=== PATIENT | male | born 1955 | race Caucasian/White ===

== ENCOUNTER 2017-01-03 08:46 | Outpatient (CLI) ==
[2016-07-11 17:47] VITALS: BMI 23.5
[2017-01-03 09:12] LABS: BASOPHILS # (AUTO) 0.1 K/uL (0-0.2); BASOPHILS % (AUTO) 1.4 % (0.0-3.0); EOSINOPHILS # (AUTO) 0.3 K/ul (0.0-0.7); HEMATOCRIT 36.5 % (42.0-52.0); HEMOGLOBIN 12.5 g/dl (14.0-18.0); IMMATURE GRANULOCYTE % (AUTO) 0.5 % (0.0-5.0); LYMPHOCYTES # (AUTO) 1.7 K/uL (0.60-3.4); MEAN CORPUSCULAR HEMOGLOBIN 36.3 pg (27.0-31.0); MEAN CORPUSCULAR HGB CONC 34.2 (31.8-35.4); MEAN CORPUSCULAR VOLUME 106.1 fl (80.0-94.0); MONOCYTES # (AUTO) 0.4 K/uL (0.4-2.0); MONOCYTES % (AUTO) 9.1 (0-10); NEUTROPHILS # (AUTO) 1.8 K/ul (2.0-6.9); PLATELET COUNT 198 10^3/uL (140-440); RED BLOOD COUNT 3.44 10^6/ul (4.70-6.10); WHITE BLOOD COUNT 4.18 K/ul (4.2-10.2)
[2017-01-03 09:47] LABS: ALBUMIN 3.7 g/dL (3.4-5.0); ALBUMIN/GLOBULIN RATIO 1.16; ANION GAP 13.8; BILIRUBIN,TOTAL 0.22 mg/dL (0.00-1.20); BUN/CREATININE RATIO 14.65; CALCIUM 9.4 mg/dL (8.2-10.2); CHOL/HDL RATIO 3.8 (4.5-6.4); CREATININE 1.16 mg/dL (0.60-1.10); POTASSIUM 3.8 mmol/L (3.5-5.1); TOTAL PROTEIN 6.9 g/dL (6.4-8.2)
== END 2017-01-03 08:47 | disposition home or self-care (01) ==
LOC: LAB 08:46
PROVIDERS: ATTEND Emergency Medicine
DX: I10 Essential (primary) hypertension (principal); R91.1 Solitary pulmonary nodule; D64.9 Anemia, unspecified; I63.432 Cerebral infarction due to embolism of left posterior cerebral artery
CPT/HCPCS: 36415; 80053; 80061; 84443; 85025

== ENCOUNTER 2017-01-04 12:42 | Outpatient (CLI) ==
[2016-07-11 17:47] VITALS: BMI 23.5
== END 2017-01-04 12:43 | disposition home or self-care (01) ==
LOC: CAR 12:42
PROVIDERS: ATTEND Emergency Medicine
DX: R06.02 Shortness of breath (principal); F17.200 Nicotine dependence, unspecified, uncomplicated

== ENCOUNTER 2017-01-05 12:35 | Outpatient (CLI) ==
[2016-07-11 17:47] VITALS: BMI 23.5
--- NOTE | 2017-01-05 13:25 | CT ---
EXAM: CT chest without contrast HISTORY: Solitary pulmonary nodule COMPARISON: CT chest 06/10/2015 TECHNIQUE: Serial axial images of the chest were obtained from the lung apices to the upper abdomen without contrast. These were viewed in multiple planes. FINDINGS: The thyroid is normal. The visualized vessels demonstrate mild atherosclerotic disease w ithout aneurysm or stenosis. The heart is normal in size without pericardial effusion. There are n o pathologically enlarged mediastinal or hilar lymph nodes. Calcified left hilar lymph nodes are pre sent. There is no pneumothorax or pleural effusion. Cavitary nodular lesion in the right lower lobe on im age 43 measures 1.9 x 1.4 cm measures unchanged when compared to prior exam at similar level. There is a questionable air crescent sign.. No additional pulmonary nodule or consolidation is identified . The airways are patent. The soft tissues are unremarkable. The osseous structures are unchanged from prior. IMPRESSION: Nodule with questionable air crescent sign in the right lower lobe. This is relatively unchanged in appearance and size dating back to 06/10/2015. This likely represents benign process given lack of c hange over time.
== END 2017-01-05 12:36 | disposition home or self-care (01) ==
LOC: RAD 12:35
PROVIDERS: ATTEND Emergency Medicine
DX: R91.1 Solitary pulmonary nodule (principal)

== ENCOUNTER 2017-01-06 18:36 | Observation (INO) ==
[2017-01-06] MEDS ORDERED: SODIUM CHLORIDE 1,000 ML IV STA (19:01)
[2017-01-06] MEDS ORDERED: PROTONIX IV IVP STA (19:02)
[2017-01-06] MEDS ORDERED: THIAMINE IVP STA (19:02)
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
--- NOTE | 2017-01-06 19:22 | CT ---
EXAM: CT head without contrast HISTORY: Trauma COMPARISON: CT head from 07/02/2016 TECHNIQUE: Helical axial CT of the head was performed without contrast. Coronal and sagittal reconst ructions were performed. FINDINGS: There is no interval change. There is no hemorrhage, mass, midline shift, abnormal extra-axial fluid collection, hydrocephalus or evolving ischemia. The shine-white matter junction is well maintained. There is a chronic infarct in the caudate nucleus on the right. There is a chronic infarct in the l eft posterior inferior cerebellar artery territory. There is atrophy and some chronic small vessel ischemia in the white matter. Brain parenchyma, ventricles and sulci are otherwise normal. There is very advanced calcific atherosclerosis of the intradural vertebral arteries bilaterally. There are no acute calvarial lesions. Visualized orbits and globes are unremarkable. The mastoid a ir cells demonstrate no significant soft tissue opacification. The visualized paranasal sinuses show no air-fluid levels. IMPRESSION: 1. No acute intervening abnormality. 2. Chronic ischemic changes as above including a chronic right caudate head infarct and chronic lef t posterior inferior cerebellar artery territory infarct. 3. Calcific atherosclerosis of the bilateral intradural vertebral arteries. 4. Mild atrophy and some small vessel ischemia in the white matter.
[2017-01-06 19:30] LABS: BASOPHILS # (AUTO) 0.1 K/uL (0-0.2); BASOPHILS % (AUTO) 1.2 % (0.0-3.0); EOSINOPHILS # (AUTO) 0.1 K/ul (0.0-0.7); EOSINOPHILS % (AUTO) 2.1 % (0.0-7.0); HEMATOCRIT 35.8 % (42.0-52.0); HEMOGLOBIN 12.5 g/dl (14.0-18.0); IMMATURE GRANULOCYTE % (AUTO) 0.4 % (0.0-5.0); LYMPHOCYTES # (AUTO) 1.8 K/uL (0.60-3.4); LYMPHOCYTES % (AUTO) 25.7 (10.0-50.0); MEAN CORPUSCULAR HEMOGLOBIN 36.1 pg (27.0-31.0); MEAN CORPUSCULAR HGB CONC 34.9 (31.8-35.4); MEAN CORPUSCULAR VOLUME 103.5 fl (80.0-94.0); MONOCYTES # (AUTO) 0.5 K/uL (0.4-2.0); MONOCYTES % (AUTO) 7.2 (0-10); NEUTROPHILS # (AUTO) 4.3 K/ul (2.0-6.9); NEUTROPHILS % (AUTO) 63.4; PLATELET COUNT 205 10^3/uL (140-440); RED BLOOD COUNT 3.46 10^6/ul (4.70-6.10); WHITE BLOOD COUNT 6.82 K/ul (4.2-10.2)
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
[2017-01-06 19:49] LABS: ALBUMIN 3.7 g/dL (3.4-5.0); ALBUMIN/GLOBULIN RATIO 1.23; ANION GAP 15.4; BILIRUBIN,TOTAL 0.21 mg/dL (0.00-1.20); POTASSIUM 3.4 mmol/L (3.5-5.1); TOTAL PROTEIN 6.7 g/dL (6.4-8.2)
--- NOTE | 2017-01-06 19:55 | DI ---
EXAM: Left knee four views HISTORY: Trauma COMPARISON: None FINDINGS: The bones are normal. The medial, lateral, and patellofemoral compartments are normal in height. No joint effusion. Mild atherosclerotic vascular calcification IMPERSSION: No fracture or dislocation.
--- NOTE | 2017-01-06 19:55 | DI ---
EXAM: Right knee four views HISTORY: Trauma COMPARISON: None FINDINGS: Bones are normal. The medial, lateral, and patellofemoral compartments are normal in heig ht. No joint effusion. Mild atherosclerotic vascular calcification. IMPERSSION: No fracture or dislocation.
[2017-01-06] MEDS ORDERED: ZOFRAN 4 MG/2 ML IVP PRN (20:12)
[2017-01-06] MEDS ORDERED: LIBRAX 2.5/5 MG PO PRN (20:20)
[2017-01-06] MEDS ORDERED: PROAIR HFA IH PRN (20:22)
[2017-01-06] MEDS: ULTRAM PO PRN (20:45)
[2017-01-06] MEDS: D5%-NS-KCL 20 MEQ/L IV SOL 1,000 ML IV SCH (20:45)
[2017-01-06 21:09] VITALS: BMI 23.2
[2017-01-06] MEDS ORDERED: LIBRAX 2.5/5 MG PO STA (21:30)
[2017-01-06] MEDS ORDERED: TYLENOL PO STA (23:04)
[2017-01-07] MEDS: ULTRAM PO PRN ×3 (00:31→10:09)
[2017-01-07] MEDS: D5%-NS-KCL 20 MEQ/L IV SOL 1,000 ML IV SCH ×2 (02:33→09:13)
[2017-01-07 04:54] LABS: BASOPHILS # (AUTO) 0.1 K/uL (0-0.2); BASOPHILS % (AUTO) 1.5 % (0.0-3.0); EOSINOPHILS # (AUTO) 0.2 K/ul (0.0-0.7); EOSINOPHILS % (AUTO) 4.1 % (0.0-7.0); HEMATOCRIT 31.7 % (42.0-52.0); HEMOGLOBIN 10.8 g/dl (14.0-18.0); IMMATURE GRANULOCYTE % (AUTO) 0.2 % (0.0-5.0); LYMPHOCYTES # (AUTO) 1.9 K/uL (0.60-3.4); LYMPHOCYTES % (AUTO) 40.7 (10.0-50.0); MEAN CORPUSCULAR HEMOGLOBIN 35.8 pg (27.0-31.0); MEAN CORPUSCULAR HGB CONC 34.1 (31.8-35.4); MONOCYTES # (AUTO) 0.4 K/uL (0.4-2.0); MONOCYTES % (AUTO) 8.6 (0-10); NEUTROPHILS # (AUTO) 2.1 K/ul (2.0-6.9); NEUTROPHILS % (AUTO) 44.9; PLATELET COUNT 176 10^3/uL (140-440); RED BLOOD COUNT 3.02 10^6/ul (4.70-6.10); WHITE BLOOD COUNT 4.64 K/ul (4.2-10.2)
[2017-01-07 05:13] LABS: BUN/CREATININE RATIO 12.37; CALCIUM 7.8 mg/dL (8.2-10.2); CREATININE 0.97 mg/dL (0.60-1.10)
[2017-01-07] MEDS: ASPIRIN EC PO SCH ×2 (08:17→09:51)
[2017-01-07] MEDS ORDERED: NON-FORMULARY MEDICATION (Docusate Sodium [Stool Softener] 50 MG) PO SCH (09:00)
[2017-01-07] MEDS ORDERED: THIAMINE IVP SCH (09:00)
[2017-01-07] MEDS ORDERED: ZOCOR PO SCH (09:00)
[2017-01-07] MEDS ORDERED: COLACE PO SCH (09:00)
[2017-01-07] MEDS ORDERED: PLAVIX PO SCH (09:00)
[2017-01-07 11:09] VITALS: BP 134/79; TEMP 98.2
--- NOTE | 2017-01-08 13:31 | PN ---
DATE OF SERVICE: 01/06/17 CHIEF COMPLAINT: Fall and the knee pain and alcohol ingestion SUBJECTIVE: The patient is a 61 year old male with multiple medical problems who was sleeping in the bed and turned around, fell down the floor. He says that he has been drinking more. Took a pint of Vodka today because his knees were hurting ever since he fell down in the floor he is hurting more. He came to the emergency room for the evaluation and see by Dr. Lopez. Hgb is mildly low, lab work was fine. Alcohol showed the 366, CT showed the severe arthritis and it was negative for intracranial bleed. REVIEW OF SYSTEMS: CONSTITUTIONAL: No fever, no chills. HEENT: Normal. ENDOCRINE: No weight gain, no weight loss. CVS: No angina symptoms. No CHF symptoms. No palpitations. No atypical chest pain for CAD. No shortness of breath. No PND, no orthopnea. RESPIRATORY: No cough, no hemoptysis. GI: No nausea, no vomiting. No abdominal pain. : No hematuria. No polyuria. MUSCULOSKELETAL:. No joint swelling. PSYCHIATRIC: Not anxious. No depression. No suicidal thoughts. No homicidal thoughts. SKIN: Intact. No rash. PHYSICAL EXAMINATION: V/S: Blood pressure 157/102, respiratory 20, heart rate 106 and temperature 98.2. HEENT: Normocephalic, atraumatic. Mucosa dry. Pallor positive. No icterus. NECK: Supple. No JVD, no carotid bruit. No lymphadenopathy. LUNGS: Decreased and Clear to auscultation. No rales or rhonchi. HEART: S1, S2 normal. No S3. No murmur, gallop or regurgitation. ABDOMEN: Soft, nontender. Bowel sounds active. No rigidity. No rebound or guarding. No CVA tenderness. EXTREMITIES: No clubbing, cyanosis or pedal edema. Range of motion in the bilateral knees is decreased and some bruising is present. MUSCULOSKELETAL: No joint swelling. NEUROLOGIC: Awake, alert, oriented times three. No focal deficit. LYMPHATIC: No lymph nodes palpable. SKIN: Intact. LABS: WBC 6.82, hgb 12.5, hct 35.8, plt count 205, sodium 142, potassium 3.4, chloride 108, bicarb 22, BUN 14, creatinine 1.0. Blood alcohol level is 366. ASSESSMENT: 1. Acute alcohol intoxication 2. Status post fall with knee pain 3. History of CVA 4. Hypertension 5. Chronic kidney disease 6. Chronic anemia 7. Osteoarthritis 8. DJD spine PLAN: 1. Admit patient to the observation 2. IV fluids 3. Zofran PRN 4. Potassium replacement 5. Librium 6. Librax Will follow the patient in daily rounds. TIME SPENT: More than 45 minutes MTDD
--- NOTE | 2017-01-08 14:03 | PN ---
DATE OF SERVICE: 01/07/17 SUBJECTIVE: The patient is sitting in the bed. Again he was explained that he is not alcoholic but he was born alcoholic and says that he has been drinking ever since he was a child and he has no intensions to stop. When we talked about the Alcohol Anonymous Group he got very much offended. Nurse Stefanie was in the room explained that multiple medication and the alcohol along with them. The patient said that he would think about it. Still complains about the pain in the both lower extremities. REVIEW OF SYSTEMS: CONSTITUTIONAL: No fever, no chills. HEENT: Normal. ENDOCRINE: No weight gain, no weight loss. CVS: No angina symptoms. No CHF symptoms. No palpitations. No atypical chest pain for CAD. No shortness of breath. No PND, no orthopnea. RESPIRATORY: No cough, no hemoptysis. GI: No nausea, no vomiting. No abdominal pain. : No hematuria. No polyuria. MUSCULOSKELETAL:. No joint swelling. PSYCHIATRIC: Not anxious. No depression. No suicidal thoughts. No homicidal thoughts. SKIN: Intact. No rash. PHYSICAL EXAMINATION: V/S: Blood pressure 134/79, respiratory rate 20, heart rate 90 and temperature 98.2. HEENT: Normocephalic, atraumatic. Mucosa dry. NECK: Supple. No JVD, no carotid bruit. No lymphadenopathy. LUNGS: Clear to auscultation. No rales or rhonchi. HEART: S1, S2 normal. No S3. No murmur, gallop or regurgitation. ABDOMEN: Soft, nontender. Bowel sounds active. No rigidity. No rebound or guarding. No CVA tenderness. EXTREMITIES: No clubbing, cyanosis or pedal edema. Bilateral knee bruises are noted, superficial, not warm to touch, range of motion is decreased. MUSCULOSKELETAL: No joint swelling. NEUROLOGIC: Awake, alert, oriented times three. No focal deficit. LYMPHATIC: No lymph nodes palpable. SKIN: Intact. LABS: WBC 4.64, hgb 10.8, hct 31.7 and plt count 176. ASSESSMENT: 1. Acute alcohol intoxication 2. Status post fall with knee pain 3. History of COPD 4. Chronic kidney disease 5. CVA 6. Hypertension 7. Anemia 8. Osteoarthritis 9. DJD Spine PLAN: 1. Recheck the blood alcohol level 2. Continue the IV fluids and the Librax 3. Out of bed to chair 4. Diet regular. If the patient's alcohol level is normal the patient will be discharged today. TIME SPENT: More than 30 minutes MTDYeni
--- NOTE | 2017-02-13 14:26 | AMA ---
DATE OF SERVICE 01/07/17 61 year old patient from the [facility] was admitted with acute alcohol intoxication. When I confronted to the patient that because I have been seeing the patient for 6-7 years and he never told us that he drinks alcohol and this time he came in with alcohol intoxication. When we tried to confront and ask about the alcohol and a group to join, the patient got upset and said that he doesn't want to be treated here anymore. He has so much in the bag and he has to drink alcohol and I tried to explain that this is not the right time to make this decision and try to be calm and stay in the hospital, but after talking to him and coming back to the office, the nurses called me and told me that the patient left without even telling them. The patient will be contacted as soon as possible. VISHNU
== END 2017-01-07 12:20 | disposition left against medical advice (07) ==
LOC: ED 18:36 → SCU 20:11
PROVIDERS: ADMIT Emergency Medicine; ATTEND Emergency Medicine
DX: F10.129 Alcohol abuse with intoxication, unspecified (principal); S89.92XA Unspecified injury of left lower leg, initial encounter; S89.91XA Unspecified injury of right lower leg, initial encounter; M25.562 Pain in left knee; M25.561 Pain in right knee; W06.XXXA Fall from bed, initial encounter; I12.9 Hypertensive chronic kidney disease with stage 1 through stage 4 chronic kidney disease, or unspecified chronic kidney disease; N18.9 Chronic kidney disease, unspecified; D50.0 Iron deficiency anemia secondary to blood loss (chronic); M19.90 Unspecified osteoarthritis, unspecified site; M47.9 Spondylosis, unspecified; F17.200 Nicotine dependence, unspecified, uncomplicated; Y90.8 Blood alcohol level of 240 mg/100 ml or more; Z86.73 Personal history of transient ischemic attack (TIA), and cerebral infarction without residual deficits; Z79.82 Long term (current) use of aspirin
CPT/HCPCS: 36415; 80048; 80053; 80307; 85025; 87081; 93005; 93010; 96361; 96374; 96375; 99217; 99219; 99284

== ENCOUNTER 2017-07-23 13:40 | Outpatient (CLI) ==
[2017-07-23 14:03] LABS: BASOPHILS # (AUTO) 0.1 K/uL (0-0.2); BASOPHILS % (AUTO) 1.2 % (0.0-3.0); EOSINOPHILS # (AUTO) 0.3 K/ul (0.0-0.7); EOSINOPHILS % (AUTO) 4.3 % (0.0-7.0); HEMATOCRIT 37.6 % (42.0-52.0); HEMOGLOBIN 12.9 g/dl (14.0-18.0); IMMATURE GRANULOCYTE % (AUTO) 0.3 % (0.0-5.0); LYMPHOCYTES # (AUTO) 1.9 K/uL (0.60-3.4); LYMPHOCYTES % (AUTO) 25.8 (10.0-50.0); MEAN CORPUSCULAR HEMOGLOBIN 35.9 pg (27.0-31.0); MEAN CORPUSCULAR HGB CONC 34.3 (31.8-35.4); MEAN CORPUSCULAR VOLUME 104.7 fl (80.0-94.0); MONOCYTES # (AUTO) 0.5 K/uL (0.4-2.0); MONOCYTES % (AUTO) 7.2 (0-10); NEUTROPHILS # (AUTO) 4.4 K/ul (2.0-6.9); NEUTROPHILS % (AUTO) 61.2; PLATELET COUNT 167 10^3/uL (140-440); RED BLOOD COUNT 3.59 10^6/ul (4.70-6.10); WHITE BLOOD COUNT 7.24 K/ul (4.2-10.2)
[2017-07-23 15:08] LABS: ALBUMIN 3.7 g/dL (3.4-5.0); ALBUMIN/GLOBULIN RATIO 0.95; ANION GAP 17.2; BILIRUBIN,TOTAL 0.75 mg/dL (0.00-1.20); BUN/CREATININE RATIO 18.8; CHOL/HDL RATIO 4.7 (4.5-6.4); CREATININE 2.18 mg/dL (0.60-1.10); POTASSIUM 5.2 mmol/L (3.5-5.1); TOTAL PROTEIN 7.6 g/dL (5.8-8.1)
== END 2017-07-23 13:41 | disposition home or self-care (01) ==
LOC: LAB 13:40
PROVIDERS: ATTEND Emergency Medicine
DX: E78.5 Hyperlipidemia, unspecified (principal); I10 Essential (primary) hypertension; K21.9 Gastro-esophageal reflux disease without esophagitis; Z12.5 Encounter for screening for malignant neoplasm of prostate
CPT/HCPCS: 36415; 80053; 80061; 84443; 85025

== ENCOUNTER 2017-07-25 08:23 | Outpatient (CLI) ==
[2017-07-25 09:15] LABS: ALBUMIN 3.8 g/dL (3.4-5.0); ALBUMIN/GLOBULIN RATIO 1.15; ANION GAP 15.8; BILIRUBIN,TOTAL 0.69 mg/dL (0.00-1.20); BUN/CREATININE RATIO 23.46; CALCIUM 9.5 mg/dL (8.2-10.2); CREATININE 1.79 mg/dL (0.60-1.10); POTASSIUM 4.8 mmol/L (3.5-5.1); TOTAL PROTEIN 7.1 g/dL (5.8-8.1)
== END 2017-07-25 08:24 | disposition home or self-care (01) ==
LOC: LAB 08:23
PROVIDERS: ATTEND Emergency Medicine
DX: N18.3 Chronic kidney disease, stage 3 (moderate) (principal)
CPT/HCPCS: 36415; 80053

== ENCOUNTER 2017-08-23 12:38 | Outpatient (CLI) ==
[2017-08-23 13:33] LABS: CHOL/HDL RATIO 3.7 (4.5-6.4)
== END 2017-08-23 12:39 | disposition home or self-care (01) ==
LOC: LAB 12:38
PROVIDERS: ATTEND Emergency Medicine
DX: E78.5 Hyperlipidemia, unspecified (principal)
CPT/HCPCS: 36415; 80061

== ENCOUNTER 2017-09-06 14:26 | Inpatient (IN) ==
[2017-09-06] MEDS ORDERED: TRANDATE IVP STA (15:01)
[2017-09-06] MEDS ORDERED: SODIUM CHLORIDE 1,000 ML IV SCH (15:30)
[2017-09-06 15:32] VITALS: BMI 24.2
--- NOTE | 2017-09-06 16:09 | CT ---
EXAM: CT head without contrast. HISTORY: Blurry vision on the left. Previous cerebrovascular accident. COMPARISON: 01/06/2017. TECHNIQUE: Multiple axial images of the brain were obtained from the skull base through the vertex w ithout intravenous contrast. Multiplanar reformats were provided. FINDINGS: There is no intracranial hemorrhage or extraaxial collection. The shine-white differentiat ion is maintained without evidence for acute large vascular territory infarction. Left cerebellar en cephalomalacia noted. Small lacunar infarctions seen in the right basal ganglia and left sub insular region. There are areas of periventricular and subcortical white matter low attenuation. The corti armando sulci and cerebral ventricles are symmetrically enlarged. The basal cisterns are well visualized . There is no hydrocephalus, mass effect, or midline shift. The paranasal sinuses and mastoid air c ells are clear. The calvarium is intact. Since the prior study, there has been no significant inter tomasz change. IMPRESSION: 1. No acute intracranial abnormality. 2. Stable areas of encephalomalacia. 3. Chronic small vessel ischemic changes and atrophy.
[2017-09-06] MEDS ORDERED: COLACE PO PRN (16:16)
[2017-09-06] MEDS: ASPIRIN EC PO SCH (16:19)
[2017-09-06] MEDS: NORCO 10-325 PO PRN ×2 (16:21→22:26)
[2017-09-06] MEDS ORDERED: THIAMINE IVP SCH (16:30)
[2017-09-06] MEDS: SODIUM CHLORIDE IV SCH (17:30)
[2017-09-06] MEDS: INFUVITE ADULT IV SCH (17:30)
[2017-09-06] MEDS: THIAMINE IV SCH (17:30)
[2017-09-06] MEDS: FERROUS SULFATE PO SCH (20:50)
[2017-09-06] MEDS: LOPRESSOR PO SCH (20:50)
[2017-09-06] MEDS: EFFEXOR XR PO SCH (20:50)
[2017-09-06] MEDS: ZESTRIL PO SCH (20:50)
[2017-09-06] MEDS ORDERED: NON-FORMULARY MEDICATION (Lisinopril [Lisinopril] 20 MG) PO SCH (21:00)
[2017-09-06] MEDS: DUONEB NEB SCH (23:02)
[2017-09-07] MEDS: DUONEB NEB SCH ×3 (04:08→23:54)
[2017-09-07] MEDS: NORCO 10-325 PO PRN ×3 (07:27→21:33)
[2017-09-07] MEDS: PLAVIX PO SCH (08:48)
[2017-09-07] MEDS: ASPIRIN EC PO SCH (08:48)
[2017-09-07] MEDS: FERROUS SULFATE PO SCH ×2 (08:48→21:27)
[2017-09-07] MEDS: LOPRESSOR PO SCH ×2 (08:48→21:27)
[2017-09-07] MEDS: ZESTRIL PO SCH ×2 (08:49→21:27)
[2017-09-07] MEDS ORDERED: EFFEXOR XR PO SCH (09:00)
[2017-09-07] MEDS ORDERED: NON-FORMULARY MEDICATION (Simvastatin [Simvastatin] 20 MG) PO SCH (09:00)
--- NOTE | 2017-09-07 12:02 | US ---
EXAM: ULTRASOUND CAROTID DUPLEX, BILATERAL HISTORY: Weakness and blurred vision, hypertension FINDINGS: Radford-scale ultrasound, color Doppler and spectral analysis was performed. Velocities are in meters per second. By radford scale and color Doppler imaging, there were regions of heterogeneous plaque formation identif ied within the carotid bulbs and internal carotid arteries. These regions of plaque appeared to asael in less than 50% vessel diameter. RIGHT: External carotid artery peak systolic velocity: 0.6 Common carotid artery peak systolic velocity/end diastolic velocity: 0.7/0.2 Internal carotid artery peak systolic velocity: 1.4 ICA/CCA peak systolic velocity ratio: 1.9 ICA end diastolic velocity: 0.4 LEFT: External carotid artery peak systolic velocity: 1.1 Common carotid artery peak systolic velocity/end diastolic velocity: 0.9/0.3 Internal carotid artery peak systolic velocity: 1.0 ICA/CCA peak systolic velocity ratio: 1.2 ICA end diastolic velocity: 0.4 The right and left vertebral arteries were antegrade. IMPRESSION: 1. By radford scale and color Doppler imaging, there were regions of heterogeneous plaque formation shari ntified within the carotid bulbs and internal carotid arteries. These regions of plaque appeared to remain less than 50% vessel diameter. 2. The right internal carotid artery peak systolic velocity of 1.4 meters per second falls within th e moderate range of stenosis. Moderate indicates 50 - 69% vessel diameter. The right-sided ICA/CCA peak systolic velocity ratio 1.9 is more consistent with mild stenosis. Mild indicates less than 50% vessel diameter. The ratio appears to better correlate with radford scale and color Doppler imaging fi ndings although correlation with CTA neck can be considered if indicated. 3. No sonographic evidence of hemodynamically significant carotid artery stenosis on the left. 4. Both vertebral arteries were antegrade.
--- NOTE | 2017-09-07 15:20 | MRI ---
EXAM: MRI orbits/brain without and with IV contrast. DATE: 07 September 2017. HISTORY: Hypertension, weakness, left eye blurred vision. Patient reports history of previous left- sided cerebrovascular accident. TECHNIQUE: Sagittal T1W pre and post contrast, axial T2W, axial FLAIR, axial T1W postcontrast, axial DWI, coronal T2W GRE, coronal T1W postcontrast sequences of the brain were obtained using 1.2 Leah magnet. Additional thin slice axial and coronal T1W pre and post-contrast images centered on the orb its, and coronal T2W sequence of the orbits were obtained. CONTRAST: Omniscan - 16 ml IV.. COMPARISON: CT head four September 2017. FINDINGS: The ventricles, cisterns, and subarachnoid spaces are enlarged due to involutional change. No midline shift, herniation, or loculated extra-axial fluid collection is apparent. Left cerebell um chronic, large infarct with encephalomalacia is observed. A T2W bright, T1W dark, 3 mm focus in t he posterior margin of the right caudate head is consistent with an old infarct. Prominent Virchow-R obin spaces are observed in each basal ganglia. Tiny neural glial cysts versus large Virchow-Walter s paces are seen in each hippocampus. No acute infarct, hemorrhage or enhancing neoplasm is visible. No abnormal enhancement is identified within the brain, meninges or dura. Small / moderate confluent rim of T2W/FLAIR hyperintensity is observed in the white matter abutting each lateral ventricle, wit h greater degree of white matter changes near the atrium of each lateral ventricle. Moderate number of 2-10 mm, T2W/FLAIR bright, non-enhancing foci are scattered in the guillaume radiata, centrum semiova le and subcortical white matter bilaterally. The shine - white matter differentiation is overall norm al. No migration or diverticulation abnormality is apparent. The amygdala, hippocampus, and parahip pocampal gyri are similar bilaterally. The 7th/8th cranial nerve complexes, cerebellopontine angles, brainstem, and visible cervical spinal cord normal. There is no cerebellar tonsillar ectopia. Pitu itary gland is small in size, with CSF filling part of the pituitary fossa. Corpus callosum is jann l in size and configuration. Flow voids are present in the major intracranial arteries and in the du ral venous sinuses. No aneurysm, AVM, or dural venous sinus thrombosis is apparent. A few inferior mastoid air cells bilaterally demonstrate T2W bright, T1W intermediate signal without abnormal enhanc ement. 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 There is no acute sinusitis. A thin membranous septa tions is suspected in the left maxillary sinus. Frontal sinuses are hypoplastic. o upper neck mass or lymphadenopathy is identified. No calvarial neoplasm or acute fracture is demonstrated. Thin slice sequences centered on the orbits reveal divergent gaze. No abnormality of the globe, lens , muscles, retrobulbar fat, or vessels in either eye. There is no abnormal enhancement or neoplasm o f the optic nerves, optic chiasm or optic tracts. The osseous alvares of both orbits appear normal. Th e cavernous sinus and Meckel's cave are symmetric and normal bilaterally. 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 IMPRESSIONS: 1. Divergent gaze - etiology uncertain. Correlate with history to determine patient was sleeping du ring the course of the examination. Correlate with physical exam. Otherwise, normal bilateral orbit s without/with contrast. 2. No acute infarct, acute hemorrhage, enhancing neoplasm, or hydrocephalus. 3. Old right caudate head lacunar infarct. Large, chronic left cerebellar infarct. 4. Moderate cerebral small vessel disease vs chronic hypertensive encephalopathy. 5. Moderate cerebral and minor cerebellar atrophy. 6. Small pituitary gland - - partially empty sella. 7. Minor bilateral mastoid air cell mucosal disease.
[2017-09-07] MEDS: INFUVITE ADULT IV SCH (18:18)
[2017-09-07] MEDS: THIAMINE IV SCH (18:18)
[2017-09-07] MEDS: SODIUM CHLORIDE IV SCH (18:18)
[2017-09-07] MEDS: ZOCOR PO SCH (21:27)
[2017-09-07] MEDS: EFFEXOR XR PO SCH (21:27)
[2017-09-08] MEDS: DUONEB NEB SCH ×3 (04:10→22:21)
[2017-09-08] MEDS: ASPIRIN EC PO SCH (09:03)
[2017-09-08] MEDS: ZESTRIL PO SCH ×2 (09:03→20:34)
[2017-09-08] MEDS: PLAVIX PO SCH (09:03)
[2017-09-08] MEDS: FERROUS SULFATE PO SCH ×2 (09:03→20:35)
[2017-09-08] MEDS: LOPRESSOR PO SCH ×2 (09:03→20:34)
[2017-09-08] MEDS: NORCO 10-325 PO PRN ×3 (09:05→21:09)
[2017-09-08] MEDS: SODIUM CHLORIDE IV SCH (16:56)
[2017-09-08] MEDS: INFUVITE ADULT IV SCH (16:56)
[2017-09-08] MEDS: THIAMINE IV SCH (16:56)
[2017-09-08] MEDS ORDERED: PHENERGAN WITH CODEINE 6.25/10 MG/5 ML PO PRN (19:04)
[2017-09-08] MEDS: EFFEXOR XR PO SCH (20:34)
[2017-09-08] MEDS: ZOCOR PO SCH (20:34)
[2017-09-09] MEDS: DUONEB NEB SCH (05:14)
[2017-09-09 05:43] VITALS: BP 122/71; TEMP 98.7
--- NOTE | 2017-09-20 11:20 | PN ---
DATE OF SERVICE: 09/07/17 SUBJECTIVE: The patient was admitted with left sided weakness and visual loss on the left side with elevated blood pressure. With the given history of CVA, the patient was admitted to the hospital. He was continued on his home medications. Blood pressure has been controlled well. The blurriness is still present today. CT of the head did not show any stroke. MRI and carotid ultrasound was done. The Carotid is less than 50%. MRI is still not available. PHYSICAL EXAMINATION: V/S: Blood pressure 117/64, respiratory rate 18, heart rate 66, temperature 97.8 , saturation 99. HEENT: Normocephalic, atraumatic. Mucosa dry. Left eye blurry vision. Pallor positive. No icterus. NECK: Supple. No JVD, no carotid bruit. No lymphadenopathy. LUNGS: Clear to auscultation. No rales or rhonchi. HEART: S1, S2 normal. No S3. No murmur, gallop or regurgitation. ABDOMEN: Soft, nontender. Bowel sounds active. No rigidity. No rebound or guarding. No CVA tenderness. EXTREMITIES: No pedal edema. No clubbing or cyanosis MUSCULOSKELETAL: No joint swelling. NEUROLOGIC: Awake, alert, oriented times three. No focal deficit. LYMPHATIC: No lymph nodes palpable. SKIN: Intact. LABS: Sodium 137, potassium 4.2, chloride 106, bicarb 22, BUN 23, creatinine 1.09, white count 6.55, hemoglobin 11.0, hematocrit 36.0, platelet count 159. ASSESSMENT: 1. LEFT EYE BLURRY VISION, PROBABLY THE AMAUROSIS FUGAX 2. HISTORY OF TIA AND CVA'S 3. UNCONTROLLED BLOOD PRESSURE 4. ANEMIA 5. CHRONIC KIDNEY DISEASE 6. DJD OF THE SPINE 7. NONCOMPLIANCE 8. DYSLIPIDEMIA PLAN: 1. Follow up on the MRI results of the brain. 2. Carotid ultrasound. 3. Out of bed to chair. 4. Activity as tolerated. TIME SPENT: More than 35 minutes MTDD
--- NOTE | 2017-09-20 11:35 | PN ---
DATE OF SERVICE: 09/08/17 SUBJECTIVE: The patient was admitted with left sided blurry vision. The vision on the right eye has improved a lot, but the left eye is still blurry. Blood pressure has been good. No headache, nausea or vomiting. REVIEW OF SYSTEMS: CONSTITUTIONAL: No fever, no chills. HEENT: Normal. ENDOCRINE: No weight gain, no weight loss. CVS: No angina symptoms. No CHF symptoms. No palpitations. No atypical chest pain for CAD. No shortness of breath. No PND, no orthopnea. RESPIRATORY: No cough, no hemoptysis. GI: No nausea, no vomiting. No abdominal pain. : No hematuria. No polyuria. MUSCULOSKELETAL: No joint swelling. PSYCHIATRIC: Not anxious. No depression. No suicidal thoughts. No homicidal thoughts. SKIN: Intact. No rash. PHYSICAL EXAMINATION: V/S: Blood pressure 120/71, respiratory rate 18, heart rate 72, temperature 97.7 , saturation 98. HEENT: Normocephalic, atraumatic. Mucosa dry. Pallor positive. No icterus. NECK: Supple. No JVD, no carotid bruit. No lymphadenopathy. LUNGS: Clear to auscultation. No rales or rhonchi. HEART: S1, S2 normal. No S3. No murmur, gallop or regurgitation. ABDOMEN: Soft, nontender. Bowel sounds active. No rigidity. No rebound or guarding. No CVA tenderness. EXTREMITIES: No pedal edema. No clubbing or cyanosis MUSCULOSKELETAL: No joint swelling. NEUROLOGIC: Awake, alert, oriented times three. No focal deficit. LYMPHATIC: No lymph nodes palpable. SKIN: Intact. LABS: White count 6.61, hemoglobin 10.8, hematocrit 32.5, platelet count 153, sodium 137, potassium 4.4, chloride 110, bicarb 20, BUN 21, creatinine 1.08, total triglycerides 337, total cholesterol 177. ASSESSMENT: 1. STATUS POST GASTROENTERITIS AND DEHYDRATION 2. LEFT EYE BLURRY VISION, AMAUROSIS FUGAX 3. TIA 4. HISTORY OF CVA 5. CHRONIC KIDNEY DISEASE 6. ANEMIA 7. DJD OF THE SPINE 8. DYSLIPIDEMIA 9. UPPER RESPIRATORY INFECTION PLAN: 1. Continue aspirin, Plavix, Phenergan with codeine for the cough. 2. Continue Lisinopril 20 mg twice daily. The patient was taking once a day. 3. Will stop the IV fluids. TIME SPENT: More than 35 minutes MTDD
--- NOTE | 2017-09-21 14:03 | DS ---
DATE OF SERVICE: 09/09/17 FINAL DIAGNOSIS: 1. TIA WITH LEFT EYE BLURRINESS 2. UNCONTROLLED BLOOD PRESSURE 3. UPPER RESPIRATORY INFECTION 4. VIRAL GASTROENTERITIS 5. DEHYDRATION 6. HISTORY OF CVA 7. CHRONIC KIDNEY DISEASE 8. DJD OF THE SPINE 9. NICOTINE USE 10. COPD 11. ANEMIA OF CHRONIC DISEASE PLAN: 1. Discharge the patient home. 2. Diet: Cardiac and healthy. 3. Activity: As much as tolerated. 4. Please do take Lisinopril 20 mg twice a day, not once a day. 5. Continue Aspirin 81 mg p.o. daily and Plavix 75 mg p.o. daily. 6. Continue the rest of the home medications: Lisinopril 20 mg p.o. twice daily, Colace prn, Ferrous sulfate, Hydrocodone, Metoprolol 25 mg twice daily, Simvastatin and Effexor DISEASE SPECIFIC EDUCATION: About the uncontrolled blood pressure, risk of intracranial bleed was discussed. Continued nicotine use and the risk of carotid stenosis, coronary artery disease and stroke was discussed. HOSPITAL COURSE: Eduar Cassidy, who is a 62 year old male with a history of CVA and TIA, came to the office complaining his left eye is totally blurry and the right eye is slightly blurry. Blood pressure in the office was 190/110. He says that he was taking the Lisinopril only 20 mg once a day and also was having some cough and congestion, nausea, vomiting and not able to keep anything down. At that time, he was admitted from the office directly and started on the IV fluids. Attributed his nausea and vomiting was from the viral gastroenteritis. Hemoglobin was 11.4, BUN and creatinine was slightly high at [address] of the head was negative for stroke. Serology was negative. Urine with trace protein. With the given IV fluids, the patient was better. With the given breathing treatment, he was feeling better. MRI was done which did not show any acute stroke. Carotid ultrasound done which showed the left sided blockage of 50 to 60% on the right side, but meanwhile the patient was started on the Lisinopril 20 mg twice a day. With the given blood pressure medication, the blood pressure has been steady and stable. Vision in the right eye is normal. The left eye is still blurry. We will get an eye doctor follow up as an outpatient. As the patient is up and about and eating good, the patient is discharged to home. TIME SPENT: MORE THAN 65 MINUTES MTDYeni
== END 2017-09-09 08:15 | disposition home or self-care (01) | DRG 69 ==
LOC: MEDSURG B 14:26
PROVIDERS: ADMIT Emergency Medicine; ATTEND Emergency Medicine
DX: G45.9 Transient cerebral ischemic attack, unspecified (principal); G45.3 Amaurosis fugax; I10 Essential (primary) hypertension; Z86.73 Personal history of transient ischemic attack (TIA), and cerebral infarction without residual deficits; J06.9 Acute upper respiratory infection, unspecified; A08.4 Viral intestinal infection, unspecified; E86.0 Dehydration; N18.9 Chronic kidney disease, unspecified; M47.9 Spondylosis, unspecified; F17.200 Nicotine dependence, unspecified, uncomplicated; J44.9 Chronic obstructive pulmonary disease, unspecified; D50.0 Iron deficiency anemia secondary to blood loss (chronic); E78.5 Hyperlipidemia, unspecified; Z91.19 Patient's noncompliance with other medical treatment and regimen; Z79.02 Long term (current) use of antithrombotics/antiplatelets; Z79.891 Long term (current) use of opiate analgesic
CPT/HCPCS: 36415; 80053; 80061; 81001; 82550; 84484; 85025; 87502; 93005; 93010; 94640

== ENCOUNTER 2017-12-24 14:49 | Outpatient (CLI) | END 2017-12-24 14:50 | disposition home or self-care (01) | LOC: RHC-LAB 14:49 | PROVIDERS: ATTEND Emergency Medicine | DX: E78.5 Hyperlipidemia, unspecified (principal); I10 Essential (primary) hypertension; K21.9 Gastro-esophageal reflux disease without esophagitis; N18.3 Chronic kidney disease, stage 3 (moderate); I63.432 Cerebral infarction due to embolism of left posterior cerebral artery | CPT/HCPCS: 36415; 80053; 80061; 84443; 85008; 85025 ==

== ENCOUNTER 2018-02-13 15:45 | Outpatient (CLI) ==
[2018-02-13 19:11] VITALS: BMI 24.5
== END 2018-02-13 15:48 | disposition critical access hospital (66) ==
LOC: AMBL 15:45
PROVIDERS: ATTEND Internal Medicine
DX: R51 Headache (principal); R00.0 Tachycardia, unspecified; R06.9 Unspecified abnormalities of breathing; T73.2XXA Exhaustion due to exposure, initial encounter

== ENCOUNTER 2018-02-13 15:52 | Observation (INO) ==
[2018-02-13] MEDS ORDERED: SODIUM CHLORIDE 1,000 ML IV STA (16:12)
[2018-02-13] MEDS ORDERED: PROAIR HFA IH PRN (17:02)
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
[2018-02-13] MEDS ORDERED: INFUVITE ADULT IV ONE (18:37)
[2018-02-13] MEDS ORDERED: THIAMINE ONE (18:37)
[2018-02-13] MEDS ORDERED: FOLIC ACID ONE (18:39)
[2018-02-13] MEDS: FOLIC ACID 1 MG, INFUVITE ADULT 10 ML, THIAMINE 100 MG in SODIUM CHLORIDE 1,000 ML IV SCH (18:57)
[2018-02-13 19:11] VITALS: BMI 24.5
[2018-02-13] MEDS ORDERED: EPIPEN TWINPAK IM PRN (19:22)
[2018-02-13] MEDS ORDERED: NON-FORMULARY MEDICATION (Loratadine [Loratadine] 10 MG) PO PRN (19:22)
[2018-02-13] MEDS ORDERED: ZOFRAN 4 MG/2 ML IVP PRN (19:28)
[2018-02-13] MEDS ORDERED: COLACE PO PRN (19:32)
[2018-02-13] MEDS ORDERED: NORCO 10-325 PO PRN (19:32)
[2018-02-13] MEDS ORDERED: ZESTRIL ONE (19:49)
[2018-02-13] MEDS: FERROUS SULFATE PO SCH (20:48)
[2018-02-13] MEDS ORDERED: NON-FORMULARY MEDICATION (Lisinopril [Lisinopril] 20 MG) PO SCH (21:00)
[2018-02-13] MEDS ORDERED: LIBRIUM ONE (21:41)
[2018-02-13] MEDS ORDERED: NORCO 10-325 ONE (21:42)
[2018-02-13] MEDS: NORCO 10-325 PO PRN (21:57)
[2018-02-13] MEDS: LIBRIUM PO PRN (21:57)
[2018-02-14] MEDS: ATIVAN IVP PRN ×2 (01:31→20:31)
[2018-02-14] MEDS ORDERED: FOLIC ACID ONE (02:22)
[2018-02-14] MEDS ORDERED: THIAMINE ONE (02:22)
[2018-02-14] MEDS ORDERED: INFUVITE ADULT IV ONE (02:22)
[2018-02-14] MEDS: FOLIC ACID 1 MG, INFUVITE ADULT 10 ML, THIAMINE 100 MG in SODIUM CHLORIDE 1,000 ML IV SCH ×2 (02:36→10:35)
[2018-02-14] MEDS ORDERED: EPINEPHRINE 1:1,000 AMP IM PRN (07:30)
[2018-02-14] MEDS ORDERED: CLARITIN PO PRN (07:35)
[2018-02-14] MEDS: ASPIRIN EC PO SCH (08:41)
[2018-02-14] MEDS: ZESTRIL PO SCH ×2 (08:41→20:23)
[2018-02-14] MEDS: PLAVIX PO SCH (08:41)
[2018-02-14] MEDS: EFFEXOR XR PO SCH (08:41)
[2018-02-14] MEDS: FERROUS SULFATE PO SCH ×2 (08:41→20:23)
[2018-02-14] MEDS: NORCO 10-325 PO PRN ×2 (09:03→16:15)
[2018-02-14] MEDS: LIBRIUM PO PRN ×2 (09:24→20:29)
[2018-02-14] MEDS ORDERED: MYLANTA SUSP PO PRN (13:57)
--- NOTE | 2018-02-14 14:13 | HP ---
DATE OF SERVICE: 02/13/18 CHIEF COMPLAINT: Light headedness, dizziness and dehydration. HISTORY OF PRESENT ILLNESS: This is a 62 year old male with a history of CVA and COPD. He had been working in the yard and hot, started drinking alcohol and started having the palpitation , light headedness and almost passing out so came to the emergency room seen by Dr. Hanson. Hgb is 10.6, BUN 24, creatinine 1.15 and blood alcohol level was 146. At that time the patient was admitted to the hospital for further evaluation for acute dehydration, light headedness and alcohol intoxication. REVIEW OF SYSTEMS: CONSTITUTIONAL: No fever, no chills. Weakness, tiredness and light headedness. Dehydration. HEENT: Normal. ENDOCRINE: No weight gain; no weight loss. CVS: No chest pain. No PND, no orthopnea. No shortness of breath. No PND, no orthopnea. RESPIRATORY: No cough, no congestion. No hemoptysis. GI: No nausea, no vomiting. No abdominal pain. No melena. : No hematuria. No polyuria. MUSCULOSKELETAL: No joint swelling. Back pain. PSYCHIATRIC: Anxious. Depression. No suicidal thoughts. No homicidal thoughts. SKIN: Intact, no open lesions. PAST MEDICAL HISTORY: Hypertension Hyperlipidemia Aneurysm CVA COPD Anemia Chronic kidney disease PAST SURGICAL HISTORY: Umbilical hernia repair PE tubes in the ears PERSONAL HISTORY: Does smoke and does drink alcohol. He doesn't want to talk exact how much he wants to drink when we ask the question he just tries to not answer FAMILY HISTORY: Bypass surgery Diabetes MEDICATIONS: Effexor EpiPen Colace Aspirin Ferrous Sulfate Lisinopril Simvastatin Plavix Albuterol Loratadine Hydrocodone ALLERGIES: Niacin [place] Egg Poison Gogo PHYSICAL EXAMINATION: V/S: Blood pressure 161/98, respiratory rate 16, heart rate 119, temperature 98.4 with saturation 98. HEENT: Atraumatic, normocephalic. No scleral icterus. Pallor positive. Mucosa dry. Alcohol smelling. NECK: Supple. No JVD, no bruit. No lymphadenopathy. No thyromegaly. HEART: S1, S2 normal. No murmur. No cyanosis or clubbing. No ascites. LUNGS: Decreased and clear to auscultation. No rales or rhonchi. ABDOMEN: Soft, nontender. Bowel sounds are active. No CVA tenderness. No rigidity or guarding. EXTREMITIES: No pedal edema. No cyanosis or clubbing MUSCULOSKELETAL: Normal joints, no swelling. NEUROLOGIC: The patient is alert and oriented. SKIN: Intact; no open lesions. LYMPHATIC: No lymph nodes palpable. LABS: WBC 4.47, hgb 10.6, hct 30.2, plt count 128, sodium 139, potassium 4.4, chloride 110, bicarb 16, BUN 24, creatinine 1.15, glucose 104, magnesium 1.7 ASSESSMENT: 1. Acute alcohol intoxication 2. Heat exhaustion 3. Dehydration 4. Acute on chronic renal failure 5. CVA 6. Dyslipidemia 7. Osteoarthritis 8. DJD spine PLAN: 1. Admit patient to the regular floor 2. CBC and CMP today and daily 3. IV Fluids 4. Librium 5. Ativan 6. MVI 7. Thiamine TIME SPENT: MORE THAN 75 minutes MTDD
--- NOTE | 2018-02-14 14:20 | PN ---
DATE OF SERVICE: 02/14/18 SUBJECTIVE: The patient feels some better. Still weak and tired. REVIEW OF SYSTEMS: CONSTITUTIONAL: No fever, no chills. HEENT: Normal. ENDOCRINE: No weight gain, no weight loss. CVS: No angina symptoms. No CHF symptoms. No palpitations. No atypical chest pain for CAD. No shortness of breath. No PND, no orthopnea. RESPIRATORY: No cough, no hemoptysis. GI: No nausea, no vomiting. No abdominal pain. : No hematuria. No polyuria. MUSCULOSKELETAL: No joint swelling. PSYCHIATRIC: Not anxious. No depression. No suicidal thoughts. No homicidal thoughts. SKIN: Intact. No rash. PHYSICAL EXAMINATION: V/S: Blood pressure 154/82, respiratory rate 16, heart rate 87, temperature 98.0 with saturation 99%. HEENT: Normocephalic, atraumatic. Mucosa dry. Pallor positive. No icterus. NECK: Supple. No JVD, no carotid bruit. No lymphadenopathy. LUNGS: Clear to auscultation. No rales or rhonchi. HEART: S1, S2 normal. No S3. No murmur, gallop or regurgitation. ABDOMEN: Soft, nontender. Bowel sounds active. No rigidity. No rebound or guarding. No CVA tenderness. EXTREMITIES: No cyanosis, clubbing or pedal edema. MUSCULOSKELETAL: No joint swelling. NEUROLOGIC: Awake, alert, oriented times three. No focal deficit. LYMPHATIC: No lymph nodes palpable. SKIN: Intact. LABS: Sodium 140, potassium 4.6, chloride 113, bicarb 19, BUN 19, creatinine 1.03, WBC 5.89, hgb 10.3, hct 30.2, plt count 141. ASSESSMENT: 1. Alcohol intoxication 2. Heat exhaustion 3. Dehydration 4. Acute on chronic renal failure 5. Hypertension 6. Stroke 7. DJD spine 8. Osteoarthritis PLAN: 1. Continue the IV fluids 2. Thiamine 3. Librium 4. Out of bed to chair activity as tolerated. TIME SPENT: More than 35 minutes MTDD
[2018-02-14] MEDS ORDERED: FOLIC ACID 1 MG, INFUVITE ADULT 10 ML, THIAMINE 100 MG in SODIUM CHLORIDE 1,000 ML IV SCH (19:15)
[2018-02-14] MEDS ORDERED: ZOCOR PO SCH (21:00)
[2018-02-15] MEDS: NORCO 10-325 PO PRN (08:14)
[2018-02-15] MEDS: ZESTRIL PO SCH (08:14)
[2018-02-15] MEDS: PLAVIX PO SCH (08:15)
[2018-02-15] MEDS: FERROUS SULFATE PO SCH (08:15)
[2018-02-15] MEDS: EFFEXOR XR PO SCH (08:15)
[2018-02-15] MEDS: ASPIRIN EC PO SCH (08:15)
[2018-02-15 11:47] VITALS: BP 112/66; TEMP 98.5
--- NOTE | 2018-02-19 14:26 | DS ---
DATE OF SERVICE: 02/15/18 FINAL DIAGNOSIS: 1. Near syncope 2. Dehydration 3. Heat exhaustion 4. Acute on chronic renal failure 5. History of CVA 6. Alcohol intoxication 7. Alcohol dependency 8. Anemia 9. 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 Followup in the [facility] within 5-7 days. Continue the rest of the home medications. MEDICATIONS AT DISCHARGE: Albuterol Plavix Ferrous Sulfate Lisinopril Simvastatin Effexor Colace Hydrocodone Aspirin NEW PRESCRIPTIONS: Librium 10mg twice a day DIET INSTRUCTIONS: Cardiac and Healthy diet ACTIVITY: As much as tolerated DISEASE SPECIFIC EDUCATION: Dehydration Heat exhaustion Hydration Alcohol dependence and need for the therapy and AA was discussed and patient refused to do it. HOSPITAL COURSE: Eduar Cassidy 70 year old man with a history of COPD and CVA was working in the yard and had a couple of drinks of alcohol then started having the palpitation, racing heart and almost fell down. Called the EMT and brought to the emergency room seen by ER physician. WBC was normal Chemistry; BUN 24 and creatinine 1.15, Toxicology screen was positive for the alcohol 146 and at that time the patient was admitted to the hospital for the dehydration, heat exhaustion and alcohol intoxication with near syncope. The patient was started on the IV fluids with the MVI, Thiamine and Ativan then we added the Librium for the withdraws. The patient was lethargic and shaky by next day. Temperature was normal and blood pressure was normal. BUN and creatinine got better from 24 to 19 and 13. Creatinine is increased. Up and about walking and did not have any tremors or early withdraw symptoms. At that time the patient being discharge home. TIME SPENT: MORE THAN 65 MINUTES [facility]
== END 2018-02-15 13:33 | disposition home or self-care (01) ==
LOC: ED 15:52 → MEDSURG A 17:24 → INTOOBSV 17:24
PROVIDERS: ADMIT Emergency Medicine; ATTEND Emergency Medicine
DX: R53.1 Weakness (principal); N17.9 Acute kidney failure, unspecified; E86.0 Dehydration; R55 Syncope and collapse; R11.0 Nausea; F10.20 Alcohol dependence, uncomplicated; T67.5XXA Heat exhaustion, unspecified, initial encounter; Z72.0 Tobacco use
CPT/HCPCS: 36415; 80053; 80307; 82550; 82553; 83735; 84484; 85008; 85025; 93005; 93010; 96360; 96361; 96374; 96376; 99217; 99220; 99226; 99284

== ENCOUNTER 2018-02-26 10:22 | Outpatient (CLI) | END 2018-02-26 10:23 | disposition home or self-care (01) | LOC: RHC-LAB 10:22 | PROVIDERS: ATTEND Emergency Medicine | DX: D64.9 Anemia, unspecified (principal) | CPT/HCPCS: 36415; 85008; 85025 ==

== ENCOUNTER 2018-03-11 08:20 | Outpatient (CLI) | END 2018-03-11 08:34 | disposition short-term general hospital (02) | LOC: AMBL 08:20 | PROVIDERS: ATTEND Internal Medicine | DX: F10.129 Alcohol abuse with intoxication, unspecified (principal); M54.2 Cervicalgia; M54.9 Dorsalgia, unspecified; R00.0 Tachycardia, unspecified ==

== ENCOUNTER 2018-03-13 12:49 | Observation (INO) ==
[2018-03-13] MEDS ORDERED: SODIUM CHLORIDE 1,000 ML IV SCH (14:30)
[2018-03-13] MEDS ORDERED: PROAIR HFA IH PRN (14:52)
[2018-03-13] MEDS ORDERED: COLACE PO PRN (14:52)
[2018-03-13] MEDS ORDERED: EPIPEN TWINPAK IM PRN (14:52)
[2018-03-13] MEDS ORDERED: NON-FORMULARY MEDICATION (Loratadine [Loratadine] 10 MG) PO PRN (14:52)
--- NOTE | 2018-03-13 14:58 | CT ---
EXAM: CT BRAIN HISTORY: Slurred speech TECHNIQUE: CT brain without intravenous contrast. 5-mm axial sections with Reformations. COMPARISON: 09/06/2017 FINDINGS: There is generalized atrophy. There is at least mild periventricular and deep white matter low attenu ation which although nonspecific is suggestive of chronic microvascular ischemic change. Probable ti ny chronic lacunar infarctions right basil ganglia. There is encephalomalacia within the left cerebe llar hemisphere. These findings are stable. Brain otherwise is unremarkable without evidence of hemorrhage or large vessel distribution recent is chemic infarction. There is no suggestion of acute hydrocephalus or subdural fluid collection. No m ass or mass effect. Cranium is within normal limits. Mastoid processes are aerated. The visualized paranasal sinuses a re clear. Nasal septal deviation toward the left incidentally noted. IMPRESSION: Involutional changes greater than expected for age. No obvious acute intracranial proce ss is identified by CT. MRI is more sensitive regarding acute ischemia and infarction if indicated c linically.
[2018-03-13] MEDS ORDERED: INFUVITE ADULT IV ONE (15:02)
[2018-03-13] MEDS ORDERED: CLARITIN PO PRN (15:06)
[2018-03-13] MEDS: INFUVITE ADULT 10 ML in SODIUM CHLORIDE 1,000 ML IV SCH (15:09)
[2018-03-13] MEDS: NORCO 10-325 PO PRN (15:10)
[2018-03-13] MEDS: THIAMINE IVP SCH (15:10)
--- NOTE | 2018-03-13 15:35 | US ---
EXAM: Ultrasound bilateral carotid duplex HISTORY: Dizziness with hypertension and history of smoking COMPARISON: Carotid Doppler 09/07/2017 TECHNIQUE: Sonographic and color Doppler evaluation of the carotids were performed. FINDINGS: The right carotid is patent in appearance with moderate atherosclerotic plaque visualized. The right ICA peak systolic velocity measures 100 cm/sec which is normal. The ICA / CCA peak systolic velocity ratio is 1.6 and ICA end-diastolic velocity is 2.2 cm/sec. The left carotid is patent in appearance with moderate atherosclerotic plaque visualized. The left ICA peak systolic velocity measures 90 cm/sec which is normal. The left ICA / CCA peak systolic velocity ratio is 1.3 and ICA end-diastolic velocity is 40 cm/sec. Vertebral arteries demonstrate antegrade flow bilaterally. Color and wave spectral analysis is unremarkable. IMPRESSION: Bilateral mild to moderate atherosclerotic disease of the carotid arteries with no sonographic or Dop pler evidence of hemodynamically significant stenosis
[2018-03-13] MEDS ORDERED: ZESTRIL PO STA (16:52)
[2018-03-13] MEDS: ZANTAC PO SCH (17:11)
[2018-03-13] MEDS: ZOCOR PO SCH (20:49)
[2018-03-13] MEDS: FERROUS SULFATE PO SCH (20:49)
[2018-03-13] MEDS: LOPRESSOR PO SCH (20:49)
[2018-03-13] MEDS ORDERED: NON-FORMULARY MEDICATION (Lisinopril [Lisinopril] 20 MG) PO SCH (21:00)
[2018-03-13] MEDS: LIBRIUM PO PRN (22:36)
[2018-03-13] MEDS: ZESTRIL PO SCH (23:14)
[2018-03-14] MEDS ORDERED: INFUVITE ADULT IV ONE ×2 (03:07→14:34)
[2018-03-14] MEDS: INFUVITE ADULT 10 ML in SODIUM CHLORIDE 1,000 ML IV SCH ×2 (03:12→14:49)
[2018-03-14] MEDS: ZANTAC PO SCH ×2 (06:23→16:39)
[2018-03-14] MEDS: LOPRESSOR PO SCH ×2 (09:11→20:36)
[2018-03-14] MEDS: ASPIRIN EC PO SCH (09:11)
[2018-03-14] MEDS: PLAVIX PO SCH (09:11)
[2018-03-14] MEDS: THIAMINE IVP SCH (09:12)
[2018-03-14] MEDS: FERROUS SULFATE PO SCH ×2 (09:12→20:36)
[2018-03-14] MEDS: NORCO 10-325 PO PRN ×2 (09:15→14:52)
[2018-03-14] MEDS: LIBRIUM PO PRN ×2 (09:20→20:35)
[2018-03-14] MEDS: ZESTRIL PO SCH ×2 (09:26→20:35)
[2018-03-14] MEDS: ZOCOR PO SCH (20:36)
[2018-03-15] MEDS ORDERED: INFUVITE ADULT IV ONE (02:42)
[2018-03-15] MEDS: INFUVITE ADULT 10 ML in SODIUM CHLORIDE 1,000 ML IV SCH (02:44)
[2018-03-15] MEDS: ZANTAC PO SCH (05:50)
[2018-03-15] MEDS: NORCO 10-325 PO PRN (06:10)
[2018-03-15] MEDS: LIBRIUM PO PRN (06:10)
[2018-03-15] MEDS: PLAVIX PO SCH (08:46)
[2018-03-15] MEDS: ZESTRIL PO SCH (08:46)
[2018-03-15] MEDS: FERROUS SULFATE PO SCH (08:47)
[2018-03-15] MEDS: LOPRESSOR PO SCH (08:47)
[2018-03-15] MEDS: ASPIRIN EC PO SCH (08:47)
[2018-03-15] MEDS: THIAMINE IVP SCH (08:47)
[2018-03-15 09:36] VITALS: BP 125/67; TEMP 98.4
--- NOTE | 2018-03-15 17:27 | PCM.HOSP ---
- Observation Care Discharge [id number] OBS Care Discharge (84620): 03/15 - Initial Observation Care [id number] High Complexity 70 Minutes (03915): 03/13 - Subsequent Observation Care [id number] 35 Minutes per Day ([id number]): 03/14
--- NOTE | 2018-03-20 11:54 | PN ---
DATE OF SERVICE: 03/14/18 SUBJECTIVE: The patient was admitted from the office yesterday for slurry speech and left eye blindness, which resolved. The patient has history of CVA so admitted to rule out CVA. CT of head negative. Carotid ultrasound did show diffuse coronary artery disease but did not mention how much percentage was blockage. Bilateral mild to moderate atherosclerotic vascular disease. As of today, the patient says he has been having some palpitations, feels uncomfortable in the chair. REVIEW OF SYSTEMS: CONSTITUTIONAL: No fever, no chills. HEENT: Normal. ENDOCRINE: No weight gain, no weight loss. CVS: No angina symptoms. No CHF symptoms. Positive for palpitations. No atypical chest pain for CAD. No shortness of breath. No PND, no orthopnea. RESPIRATORY: No cough, no hemoptysis. GI: No nausea, no vomiting. No abdominal pain. : No hematuria. No polyuria. MUSCULOSKELETAL: No joint swelling. PSYCHIATRIC: Not anxious. No depression. No suicidal thoughts. No homicidal thoughts. SKIN: Intact. No rash. PHYSICAL EXAMINATION: V/S: BP 120/76, respiratory rate 18, heart rate 76, temperature 97.8, saturation 99. HEENT: Normocephalic, atraumatic. Mucosa dry. Pallor positive. No icterus. NECK: Supple. No JVD, no carotid bruit. No lymphadenopathy. LUNGS: Decreased breath sounds with basilar crackles. HEART: S1, S2 normal. No S3. No murmur, gallop or regurgitation. ABDOMEN: Soft, nontender. Bowel sounds active. No rigidity. No rebound or guarding. No CVA tenderness. EXTREMITIES: No cyanosis, clubbing or pedal edema. MUSCULOSKELETAL: No joint swelling. NEUROLOGIC: Awake, alert, oriented times three. No focal deficit. LYMPHATIC: No lymph nodes palpable. SKIN: Intact. LABS: White count 5.95, hemoglobin 11.0, hematocrit 3.6, platelet count 144. Sodium 138, potassium 3.9, chloride 109, bicarb 20, BUN 10, creatinine 0.98, glucose 98. ASSESSMENT: 1. LEFT EYE TRANSIENT VISION LOSS MOST LIKELY FROM TIA 2. HISTORY OF CVA 3. ANEMIA 4. CHRONIC KIDNEY DISEASE 5. HYPERTENSION 6. DYSLIPIDEMIA 7. OSTEOARTHRITIS 8. ALCOHOL USE PLAN: 1. IV fluids with Thiamine 2. Metoprolol b.i.d. 3. Out of bed to chair with help TIME SPENT: More than 35 minutes [facility]TDD
--- NOTE | 2018-03-20 13:30 | DS ---
DATE OF SERVICE: 03/15/18 FINAL DIAGNOSIS: 1. HYPERTENSION, UNCONTROLLED 2. BLURRY VISION LEFT EYE MOST LIKELY FROM TIA 3. ALCOHOL DEPENDENCE AND EARLY WITHDRAWAL 4. HISTORY OF CVA, NO RESIDUAL 5. HYPERTENSION, UNCONTROLLED 6. DYSLIPIDEMIA 7. OSTEOARTHRITIS 8. DJD SPINE 9. ANXIETY DISORDER 10. CHRONIC KIDNEY DISEASE 11. HERNIA REPAIR DISCHARGE INSTRUCTIONS: 1. Discharge the patient home. 2. Followup in the [facility] within 5 to 7 days. 3. Continue the home medication as it is. 4. No alcohol. 5. Advised him to participate in AA group. MEDICATIONS AT DISCHARGE: Epinephrine Colace Aspirin Simvastatin Plavix Albuterol Loratadine Hydrocodone Chlordiazepoxide Ranitidine/Zantac Ferrous Sulfate Metoprolol Lisinopril NEW PRESCRIPTIONS: None DIET INSTRUCTIONS: Cardiac and healthy ACTIVITY: As tolerated DISEASE SPECIFIC EDUCATION: Mini stroke, alcohol withdrawal discussed with the patient and verbalized understanding. HOSPITAL COURSE: The patient is a 70-year-old male who was recently admitted to [facility] for alcohol intoxication on 03/11/18, and was discharged the next day. He went home, started having some palpitations, headache, left eye blurry and started having slurred speech. He came to the office. Given his risk for stroke, the patient was admitted to the hospital. CT head was obtained which was negative for stroke. Carotid ultrasound was done which showed mild to moderate disease but the patient did not have any episode during the hospital stay. IV fluids Thiamine and Librium was given. By the next day, the patient felt some better, started having some palpitations. Heart rate went up to 107 to 108 sinus. Metoprolol 25 mg twice a day continued and Lisinopril 20 mg twice a day continued. Blood pressure controlled 118/71, 125/67. As the patient has been doing good, up and about walking, did not have any complication, he is being discharged home. TIME SPENT: MORE THAN 65 MINUTES MTDD
== END 2018-03-15 10:12 | disposition home or self-care (01) ==
LOC: MEDSURG B 12:49
PROVIDERS: ADMIT Emergency Medicine; ATTEND Emergency Medicine
DX: H53.8 Other visual disturbances (principal); R51 Headache; E78.5 Hyperlipidemia, unspecified; I10 Essential (primary) hypertension; N18.3 Chronic kidney disease, stage 3 (moderate); M19.90 Unspecified osteoarthritis, unspecified site; F41.9 Anxiety disorder, unspecified; F10.20 Alcohol dependence, uncomplicated; Z72.0 Tobacco use
CPT/HCPCS: 36415; 80053; 80306; 81001; 82550; 82553; 84484; 85008; 85025; 87081; 93005; 93010; 99217; 99220; 99226

== ENCOUNTER 2018-05-15 12:44 | Outpatient (CLI) | END 2018-05-15 12:45 | disposition home or self-care (01) | LOC: CAR 12:44 | PROVIDERS: ATTEND Emergency Medicine | DX: J44.9 Chronic obstructive pulmonary disease, unspecified (principal) ==

== ENCOUNTER 2018-06-07 14:30 | Outpatient (CLI) | END 2018-06-07 14:31 | disposition home or self-care (01) | LOC: FCC-LAB 14:30 | PROVIDERS: ATTEND Family Medicine | DX: E55.9 Vitamin D deficiency, unspecified (principal); D53.9 Nutritional anemia, unspecified | CPT/HCPCS: 36415; 80053; 82306; 82607; 82728; 82746; 83540; 83550 ==

== ENCOUNTER 2018-06-11 23:41 | Outpatient (CLI) | END 2018-06-11 23:55 | disposition short-term general hospital (02) | LOC: AMBL 23:41 | PROVIDERS: ATTEND Family Medicine | DX: M54.2 Cervicalgia (principal); R47.81 Slurred speech; F10.129 Alcohol abuse with intoxication, unspecified; W19.XXXA Unspecified fall, initial encounter ==

== ENCOUNTER 2018-06-24 13:06 | Outpatient (CLI) ==
--- NOTE | 2018-06-24 22:44 | MRI ---
EXAM: Lumbar spine MRI without contrast. HISTORY: Lumbar spinal stenosis. COMPARISON: Lumbar spine MRI 07/01/2014. TECHNIQUE: Multiplanar, multisequence MR images were acquired lumbar spine without contrast. FINDINGS: Conus medullaris ends at T12-L1 and has normal morphology and signal intensity. Canal rina meter is developmentally narrow. Five non-rib bearing lumbar vertebra are present. There is 10 degr ees rotatory levoscoliosis centered at L3-4 and 1.5 mm retrolisthesis of L3 on L4 and 2 mm retrolisth esis of L5 on S1. The superior endplate of S1 is smaller than the inferior endplate of L5. Ventral and lateral osteophytes are present in the lumbar spine and there are moderate right anterolateral en dplate osteophytes at L3-4. There is endplate irregularity with disc desiccation from L1-2 through L 3-4 and disc desiccation at L5-S1. There is anterior disc space narrowing at L1-2 and L3-4. There ar e chronic Schmorl's nodes from T10-L2. The partially visualized liver, spleen and kidneys are unremarkable. T12-L1: The intervertebral disc is normal. There is minor irregular concavity of the T12 inferior e ndplate. L1-2: There is a diffuse disc bulge and a small broad-based central disc protrusion that effaces the ventral thecal sac. There is prominent dorsal epidural fat and in this patient with a developmental ly narrow canal, there is mild spinal stenosis. AP diameter of the thecal sac is 9.2 mm. L2-3: There is a mild diffuse disc bulge that is asymmetric to the left which causes mild spinal elizabeth nosis and mild left neural foraminal stenosis. AP diameter of the thecal sac is 9.3 mm. L3-4: There is a moderate diffuse disc bulge and a small central disc protrusion and annular tear th at effaces the ventral thecal sac. Mild bilateral hypertrophic facet arthropathy and ligamentum flav um hypertrophy is present and there is mild to moderate central canal stenosis and mild bilateral for aminal stenosis. AP diameter of the thecal sac is 6.9 mm. L4-5: There is a minor disc bulge and moderate bilateral facet arthropathy and ligamentum flavum hyp ertrophy which produces minor left neural foraminal stenosis. The thecal sac is small at this level and measures 8.7 mm in AP diameter. L5-S1: There is a mild disc bulge that is greatest posteriorly and a small to moderate broad-based c entral disc protrusion. Mild bilateral hypertrophic facet arthropathy and ligamentum flavum hypertro phy is present, greater on the left. There is mild to moderate right and moderately severe left neur al foraminal stenosis with encroachment on both L5 nerves, greater on the left. IMPRESSION: 1. No change moderate lumbar degenerative spondylosis and facet arthropathy with chronic Schmorl's n odes from T10 through L2. 2. Small broad-based central disc protrusion L1-2, small central disc protrusion L3-4 and small to m oderate central disc protrusion L5-S1. 3. Mild L1-2 and L2-3 and mild to moderate L3-4 central canal stenosis. 4. Multilevel foraminal stenosis.
== END 2018-06-24 13:07 | disposition home or self-care (01) ==
LOC: RAD 13:06
PROVIDERS: ATTEND Family Medicine
DX: M48.061 Spinal stenosis, lumbar region without neurogenic claudication (principal)

== ENCOUNTER 2018-06-25 12:58 | Outpatient (CLI) ==
--- NOTE | 2018-06-26 13:33 | MRI ---
EXAM: Cervical spine MRI without contrast. HISTORY: Cervical spinal stenosis. COMPARISON: Cervical spine CT scan 01/06/2017 and cervical spine MRI 06/29/2014. TECHNIQUE: Multiplanar, multisequence MR images were acquired cervical spine without contrast. FINDINGS: There is a small to moderate area of cystic encephalomalacia in the inferior left cerebell um compatible with a chronic left PICA infarct. A partial empty sella is present. The cervical cord has no abnormal T2 hyperintensities. There is mild mid-cervical dextroscoliosis centered at C4-5 and there is straightening of the usual cervical lordosis. There is 1.5 mm retrolisthesis of C5 on C6. The cervical vertebra are generally normal in height and intrinsic bone marrow signal. There is nohelia tral spondylosis from C3-4 to C6-7 with mild disc space narrowing and degenerative endplate changes a t C5-6. This has mildly progressed compared to previously. Canal diameter is developmentally narrow . There is mild mucosal thickening in several scattered left mastoid air cells and a single inferior right mastoid air cell. There is mild adenoidal hypertrophy with a few small nasopharyngeal submucos al cysts. There are no paravertebral masses. Visualized lung apices are clear. C2-3: The intervertebral disc is normal. There is minor thickening of the posterior longitudinal li gament and mild left hypertrophic facet arthropathy. There is mild left neural foraminal stenosis. C3-4: There is a mild posterior disc osteophyte complex that is asymmetric to the left and mild thic kening of the posterior longitudinal ligament. Left greater than right uncovertebral hypertrophy is present and there is mild spinal stenosis and mild right and moderate left neural foraminal stenosis. AP diameter of the thecal sac is 9 mm. C4-5: There is a broad-based posterior disc osteophyte complex and small central disc protrusion summer t effaces the ventral thecal sac. Bilateral uncovertebral hypertrophy and mild left facet arthropath y is present. There is mild spinal stenosis and severe bilateral foraminal stenosis. AP diameter of the thecal sac is 7.8 mm. C5-6: There is a posterior disc osteophyte complex that is asymmetric to the left with a more focal left paracentral disc osteophyte complex and superimposed disc protrusion that mildly indents the lef t ventral cervical cord and bilateral uncovertebral hypertrophy. This has mildly progressed compared to previously. However, the central and left paracentral herniated disc fragment shows slight impro vement in the left paracentral component of the herniated disc fragment. This produces slightly less left cord compression. There is mild to moderate central canal stenosis and severe bilateral forami nal stenosis. AP diameter of the thecal sac is 6 mm. C6-7: There is a mild diffuse disc osteophyte complex and bilateral uncovertebral hypertrophy. A sm all synovial space is present along the anterior right facet joint that contacts the exiting right C6 nerve. There is mild spinal stenosis and severe left and moderately severe right foraminal stenosis . AP diameter of the thecal sac is 8.8 mm. C7-T1: There is a minor posterior disc bulge and mild left facet arthropathy. There is mild left ne ural foraminal stenosis. Small left perineural cyst is present. IMPRESSION: 1. Mild mid-cervical dextroscoliosis and moderate cervical degenerative spondylosis which has mildly progressed at C5-6. 2. Mild C3-4, C4-5 and C6-7 and mild to moderate C5-6 central canal stenosis. 3. Moderate discogenic disease C5-6 with more focal left paracentral disc osteophyte complex and sup erimposed disc protrusion that mildly indents the left cord without edema. 4. Multilevel high-grade foraminal stenosis. 5. 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
== END 2018-06-25 12:59 | disposition home or self-care (01) ==
LOC: RAD 12:58
PROVIDERS: ATTEND Family Medicine
DX: M48.02 Spinal stenosis, cervical region (principal)

== ENCOUNTER 2018-10-07 12:21 | Outpatient (CLI) ==
[2018-08-14 18:13] VITALS: BMI 24.4
== END 2018-10-07 12:22 | disposition home or self-care (01) ==
LOC: LAB 12:21
PROVIDERS: ATTEND Family Medicine
DX: E78.5 Hyperlipidemia, unspecified (principal); E53.8 Deficiency of other specified B group vitamins; D53.9 Nutritional anemia, unspecified; N18.2 Chronic kidney disease, stage 2 (mild); Z51.81 Encounter for therapeutic drug level monitoring; Z79.899 Other long term (current) drug therapy
CPT/HCPCS: 36415; 80053; 80061; 80306; 82607; 82746; 84165; 85008; 85025; 85045

== ENCOUNTER 2018-11-14 17:47 | Outpatient (CLI) ==
[2018-08-14 18:13] VITALS: BMI 24.4
== END 2018-11-14 18:02 | disposition short-term general hospital (02) ==
LOC: AMBL 17:47
PROVIDERS: ATTEND Emergency Medicine
DX: R07.9 Chest pain, unspecified (principal); R00.2 Palpitations; R42 Dizziness and giddiness; R00.0 Tachycardia, unspecified

== ENCOUNTER 2019-04-18 11:05 | Outpatient (CLI) ==
[2018-08-14 18:13] VITALS: BMI 24.4
== END 2019-04-18 11:06 | disposition home or self-care (01) ==
LOC: CAR 11:05
PROVIDERS: ATTEND Nurse Practitioner Family
DX: R00.2 Palpitations (principal)
CPT/HCPCS: 93005; 93010

== ENCOUNTER 2024-07-08 19:00 | Inpatient (IN) ==
--- NOTE | 2024-07-08 19:16 | ED.PDOC ---
General ED Provider: Dr. RIANNA BRADFORD MD Chief Complaint: Weakness Stated Complaint: Patient is a 69-year-old male that reported to the emergency department via EMS for weakness. Patient stated that his generalized weakness has been going on for a week now. Patient stated that he has a history of hypertension and COPD but has not went to see his doctor in over a year or taking any of his medications. Patient stated that he is just sat in his chair because he is too weak to get up and does not feel well. Patient denies been around any other sick contacts. Patient states that nothing makes his symptoms better or worse. Patient stated that he is able to eat and drink. Patient stated that he has had to urinate on himself because he could not get out of his chair to go to the restroom. Patient stated that he has a surgical rn. Patient denies any cough, shortness of breath, nausea, vomiting, diarrhea, dizziness, syncope, loss of consciousness, headache, fever, sore throat, or any other acute symptoms. Patient's vital signs are stable. Patient's GCS is 15. Time Seen by Provider: 07/08/24 19:12 Mode of Arrival: Ambulance Information Source: Patient and EMT Exam Limitations: No limitations Primary Care Provider: JOANN UREÑA MD Nursing and Triage Documentation Reviewed and Agree: Yes Does Patient Take Opioids?: No Is Patient Opioid Naive?: No What is Opioid Naive?: *Opioid Naive implies the patient is not already taking opioids or not chronically receiving opioids on a daily basis. *PRN dosing is not "usually" associated with tolerance. *Patients are at higher risk of over-sedation and aspiration. Is Patient Opioid Tolerant?: No What is Opioid Tolerant?: *Opioid Tolerance implies less than the expected response to an opioid. *Acquired tolerance is defined by the patient taking 60mg of oral morphine daily (or equianalgesic dose of another opioid) for 1 week or more. *Often associated with chronic pain. *May take more than usual dose to achieve desired pain control. Review of Systems Review Of Systems Constitutional: Reports Weakness Eyes: Reports No symptoms Ears, Nose, Mouth, Throat: Reports No symptoms Respiratory: Reports No symptoms Cardiac: Reports No symptoms GI: Reports No symptoms : Reports No symptoms Musculoskeletal: Reports No symptoms Skin: Reports No symptoms Neurological: Reports No symptoms Endocrine: Reports No symptoms Hematologic/Lymphatic: Reports No symptoms All Other Systems: Reviewed and Negative [facility] Medical History Asthma SINCE CHILDHOOD J45.909 - Unspecified asthma, uncomplicated (ICD-10) Hypertension I10 - Essential (primary) hypertension (ICD-10) Chronic kidney disease N18.9 - Chronic kidney disease, unspecified (ICD-10) Cardiac arrhythmia I49.9 - Cardiac arrhythmia, unspecified (ICD-10) Dyslipidemia E78.5 - Hyperlipidemia, unspecified (ICD-10) Family History Mother Asthma SINCE CHILDHOOD FATHER , RESP FAILURE at age 67. Type 1 diabetes mellitus Social History History of recent travel: No Surgical History Status post hernia repair AGE 27 Z98.890 - Other specified postprocedural states (ICD-10) Physical Exam Physical Exam Appearance: Reports No pain distress and Well-nourished Ill-appearing: None Pain Distress: None Eyes: Reports MARCELL, EOMI and Conjunctiva clear ENT: Reports Ears normal, Nose normal and Oropharynx normal Neck: Supple Respiratory: Reports Airway patent, Breath sounds clear, Breath sounds diminished (Breath sounds diminished in the lower lung singleton bilaterally. Mild wheezing noted in the lower lung singleton.) and Respirations nonlabored Cardiovascular: Reports RRR, Pulses normal, No rub and No murmur GI/: Reports Soft, Nontender, No masses, Bowel sounds normal and No Organomegaly Musculoskeletal: Reports Normal strength, ROM intact, No edema and No calf tenderness Skin: Reports Warm, Dry and Normal color Neurological: Reports Sensation intact, Motor intact, Reflexes intact, Cranial nerves intact, Alert and Oriented Psychiatric: Reports Affect appropriate and Mood appropriate Course Course 07/08/24 19:12 07/08/24 19:12 Orders, Labs, Meds: Lab Review 07/08/24 19:12 WBC 11.70 H RBC 3.98 L Hgb 13.8 L Hct 41.6 L MCV 104.5 H MCH 34.7 H MCHC 33.2 RDW Coeff of Raphael 13.2 Plt Count 310 Immature Gran % (Auto) 0.6 Neut % (Auto) 85.7 H Lymph % (Auto) 7.2 L Appling % (Auto) 5.2 Eos % (Auto) 0.7 Baso % (Auto) 0.6 Neut # (Auto) 10.0 H Lymph # (Auto) 0.8 Appling # (Auto) 0.6 Eos # (Auto) 0.1 Baso # (Auto) 0.1 Immature Gran # (Auto) 0.1 Sodium 134.5 Potassium 4.07 Chloride 103.9 Carbon Dioxide 18.6 L Anion Gap 16.07 BUN 43.4 H Creatinine 1.59 H Estimated GFR (MDRD) 44.00 BUN/Creatinine Ratio 27.29 Glucose 204.4 H Lactic Acid 1.46 Calcium 10.06 Magnesium 1.69 Total Bilirubin 0.79 AST 27.1 ALT 18.9 Alkaline Phosphatase 82.8 Total Creatine Kinase 45.2 L Troponin I < 0.012 Total Protein 7.86 Albumin 4.33 Globulin 3.53 Albumin/Globulin Ratio 1.22 Orders Category Date Time Status EKG-(ED ONLY) Stat CARDIO 07/08/24 19:12 Completed NEBULIZER TREATMENT Stat CARDIO 07/08/24 19:14 Completed CBC W/ AUTO DIFF Stat LAB 07/08/24 19:12 Completed CMP [COMPREHENSIVE METABOLIC PANEL] Stat LAB 07/08/24 19:12 Completed CPK [CREATINE KINASE] Stat LAB 07/08/24 19:12 Completed FLU A & B MOLECULAR [FLU A/B MOLECULAR] Stat LAB 07/08/24 19:22 Received LACTIC ACID Stat LAB 07/08/24 19:12 Completed MAGNESIUM Stat LAB 07/08/24 19:12 Completed RAPID STREP SCREEN [MOLECULAR GROUP A STREP] Stat LAB 07/08/24 19:22 Received SARS COV-2 RNA RAPID MAYCOL Stat LAB 07/08/24 19:22 Received TROPONIN I Stat LAB 07/08/24 19:12 Completed URINALYSIS C & S IF INDICATED Stat LAB 07/08/24 19:16 Uncollected Ceftriaxone 1 gm Vial [Rocephin 1 gm Vial] Meds 07/08/24 19:28 Discontinued 1 gm IVP ONCE ONE Dexamethasone Sod Phosphate [Decadron] Meds 07/08/24 19:13 Discontinued 8 mg IVP ONCE ONE Ipratropium/Albuterol Neb [Duoneb] Meds 07/08/24 19:14 Discontinued 3 ml NEB ONCE STA Sodium Chloride 0.9% [Sodium Chloride] 1,000 ml Meds 07/08/24 19:12 Active IV BOLUS CHEST, 1V AP ONLY Stat RADS 07/08/24 19:13 Ordered Medications Generic Name Dose Route Start Last Admin Trade Name Freq PRN Reason Stop Dose Admin Sodium Chloride 1,000 mls @ 1,000 mls/hr 07/08/24 19:12 07/08/24 19:21 Sodium Chloride IV 07/08/24 20:11 1,000 mls/hr BOLUS ONE Administration Discontinued Medications Generic Name Dose Route Start Last Admin Trade Name Freq PRN Reason Stop Dose Admin Albuterol/Ipratropium 3 ml 07/08/24 19:14 07/08/24 19:27 Ipratropium/Albuterol Vial.Neb NEB 07/08/24 19:15 3 ml ONCE STA Administration Ceftriaxone Sodium 1 gm 07/08/24 19:28 Ceftriaxone 1 Gm Vial IVP 07/08/24 19:29 ONCE ONE Dexamethasone Sodium Phosphate 8 mg 07/08/24 19:13 07/08/24 19:20 Dexamethasone Sod Phos 10 Mg/Ml Inj IVP 07/08/24 19:14 8 mg ONCE ONE Administration Vital Signs: Temp Pulse Resp BP Pulse Ox 07/08/24 19:01 97.8 F 110 H 18 156/92 H 99 Discharge Plan Discharge Patient Disposition: PLACED OBSERVATION Discharge Problem: Weakness generalized, Anemia in chronic illness COPD (chronic obstructive pulmonary disease) Qualifiers: COPD type: unspecified COPD Qualified Code(s): J44.9 - Chronic obstructive pulmonary disease, unspecified CAP (community acquired pneumonia) Qualifiers: Laterality: right Lung location: middle lobe of lung Qualified Code(s): J18.9 - Pneumonia, unspecified organism Did you review [place] 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 Patient stated that his generalized weakness has been going on for a week now. Patient stated that he has a history of hypertension and COPD but has not went to see his doctor in over a year or taking any of his medications. Patient stated that he is just sat in his chair because he is too weak to get up and does not feel well. Patient denies been around any other sick contacts. Patient states that nothing makes his symptoms better or worse. Patient stated that he is able to eat and drink. Patient stated that he has had to urinate on himself because he could not get out of his chair to go to the restroom. Patient stated that he has a surgical rn. Patient denies any cough, shortness of breath, nausea, vomiting, diarrhea, dizziness, syncope, loss of consciousness, headache, fever, sore throat, or any other acute symptoms. Patient's vital signs are stable. Patient's GCS is 15. -Will order EKG, chest x-ray, troponin, CPK, and baseline labs. -Will order a UA, strep test, influenza test, and COVID test. -Will give the patient IV normal saline 1 L bolus for dehydration. -Due to patient's lungs being diminished and mild wheezing in the bilateral lower lung singleton -will give the patient a DuoNeb treatment and IV dexamethasone 8 mg. -Chest x-ray shows consolidation around the perihilar area possibly pneumonia. This was interpreted by the ER physician. -Will give the patient IV Rocephin 1 g once for pneumonia. -Patient has a chronic anemia with a hemoglobin of 13 and hematocrit of 41. -EKG shows sinus tachycardia with a rate of 104 bpm. Preatrial complexes are noted. Normal axis. No acute ST elevations noted. This was interpreted by the ER physician. -CMP shows the patient has an elevated BUN of 46 indicating that the patient is dehydrated -Troponin is negative. -(194) spoke to Steven Hardy NP who is the hospitalist at [facility] discussed this patient's case with her and discussed current treatment. Discussed that the patient had a pneumonia and has been treated with ceftriaxone. Also discussed the patient has generalized weakness and was found to have a BUN of 46 so we have given him IV normal saline 1 L bolus. I also discussed that the patient has a history of COPD and has not been treated in over a year. Discussed the patient was diminished in the lower lung singleton so we gave a DuoNeb treatment and IV Decadron 8 mg. She is agreed except the patient for generalized weakness, community-acquired pneumonia, and COPD. Patient's vital signs are stable at time of admission. Will admit the patient to observation and telemetry.
[2024-07-08] MEDS: DECADRON IVP ONE (19:20)
[2024-07-08 19:21] LABS: BASOPHILS # (AUTO) 0.1 K/uL (0-0.2); BASOPHILS % (AUTO) 0.6 % (0.0-3.0); EOSINOPHILS # (AUTO) 0.1 K/ul (0.0-0.7); EOSINOPHILS % (AUTO) 0.7 % (0.0-7.0); HEMATOCRIT 41.6 % (42.0-52.0); HEMOGLOBIN 13.8 g/dl (14.0-18.0); IMMATURE GRANULOCYTE # (AUTO) 0.1 (0.0-1.0); IMMATURE GRANULOCYTE % (AUTO) 0.6 % (0.0-5.0); LYMPHOCYTES # (AUTO) 0.8 K/uL (0.60-3.4); LYMPHOCYTES % (AUTO) 7.2 (10.0-50.0); MEAN CORPUSCULAR HEMOGLOBIN 34.7 pg (27.0-31.0); MEAN CORPUSCULAR HGB CONC 33.2 (31.8-35.4); MEAN CORPUSCULAR VOLUME 104.5 fl (80.0-94.0); MONOCYTES # (AUTO) 0.6 K/uL (0.4-2.0); MONOCYTES % (AUTO) 5.2 (0-10); NEUTROPHILS % (AUTO) 85.7 % (42.2-75.2); PLATELET COUNT 310 10^3/uL (140-440); RDW COEFFICIENT OF VARIATION 13.2 % (11.6-14.8); RED BLOOD COUNT 3.98 10^6/ul (4.70-6.10)
[2024-07-08] MEDS: SODIUM CHLORIDE 1,000 ML IV ONE (19:21)
[2024-07-08] MEDS: DUONEB NEB STA (19:27)
[2024-07-08 19:33] LABS: ALANINE AMINOTRANSFERASE 18.9 U/L (0-50); ALBUMIN 4.33 g/dL (3.5-5.0); ALKALINE PHOSPHATASE 82.8 U/L (56-119); ASPARTATE AMINO TRANSFERASE 27.1 U/L (17-59); BILIRUBIN,TOTAL 0.79 mg/dL (0.2-1.3); BLOOD UREA NITROGEN 43.4 mg/dL (9-20); CALCIUM 10.06 mg/dL (8.4-10.2); CARBON DIOXIDE 18.6 mmol/L (22-30.0); CHLORIDE 103.9 mmol/L (98-107); CREATINE KINASE 45.2 U/L (55-170); CREATININE 1.59 mg/dL (0.60-1.10); GLUCOSE 204.4 mg/dL (74-106); MAGNESIUM 1.69 mg/dL (1.6-2.3); POTASSIUM 4.07 mmol/L (3.5-5.1); SODIUM 134.5 mmol/L (134.5-145); TOTAL PROTEIN 7.86 g/dL (6.3-8.2)
[2024-07-08 19:44] LABS: TROPONIN I < 0.012 ng/ml (0.0000-0.120)
[2024-07-08 19:53] LABS: MOLECULAR FLU A NEGATIVE BY NAAT (NEGATIVE); MOLECULAR FLU B NEGATIVE BY NAAT (NEGATIVE); SARS COV-2 RNA RAPID NAAT NEGATIVE (NEGATIVE)
[2024-07-08] MEDS: ROCEPHIN 1 GM VIAL IVP ONE (20:03)
--- NOTE | 2024-07-08 21:15 | DI ---
EXAM: CHEST RADIOGRAPH TECHNIQUE: Single frontal chest radiograph. HISTORY: Chronic obstructive pulmonary disease. COMPARISON: 12/18/2023 FINDINGS: Mild linear scarring or atelectasis at the left lung base laterally. Lungs are otherwise clear. The heart size is normal. There is calcification in the aorta consistent with atherosclerosis. There is no pleural effusion. There is no pneumothorax. IMPRESSION: 1. Mild linear scarring or atelectasis at the left lung base laterally. 2. Atherosclerosis. 3. Otherwise unremarkable chest radiograph.
[2024-07-08] MEDS ORDERED: ZOFRAN 4 MG/2 ML IVP PRN (22:25)
[2024-07-08 22:43] VITALS: BMI 25.1
[2024-07-08] MEDS: SODIUM CHLORIDE 1,000 ML IV SCH (23:13)
[2024-07-08] MEDS: MOTRIN PO ONE (23:13)
[2024-07-08] MEDS: ATIVAN PO PRN (23:13)
[2024-07-08 23:40] LABS: AMPHETAMINE SCREEN,URINE NEGATIVE (NEGATIVE); BARBITURATE SCREEN,URINE NEGATIVE (NEGATIVE); BENZODIAZEPINES SCREEN,URINE NEGATIVE (NEGATIVE); CANNABINOID SCREEN,URINE NEGATIVE (NEGATIVE); COCAIN SCREEN,URINE NEGATIVE (NEGATIVE); METHADONE URINE SCREEN NEGATIVE (NEGATIVE); METHAMPHETAMINES SCREEN,URINE NEGATIVE (NEGATIVE); OPIATE SCREEN,URINE NEGATIVE (NEGATIVE); OXYCODONE URINE SCREEN NEGATIVE (NEGATIVE); PHENCYCLIDINE SCREEN,URINE NEGATIVE (NEGATIVE); TRICYCLIC ANTIDEPRESSANTS URIN NEGATIVE (NEGATIVE)
[2024-07-09] MEDS: DUONEB NEB SCH (00:30)
[2024-07-09 05:26] LABS: BASOPHILS % (AUTO) 0.2 % (0.0-3.0); EOSINOPHILS % (AUTO) 0.1 % (0.0-7.0); HEMATOCRIT 39.5 % (42.0-52.0); HEMOGLOBIN 12.5 g/dl (14.0-18.0); IMMATURE GRANULOCYTE # (AUTO) 0.1 (0.0-1.0); IMMATURE GRANULOCYTE % (AUTO) 0.6 % (0.0-5.0); LYMPHOCYTES # (AUTO) 0.5 K/uL (0.60-3.4); LYMPHOCYTES % (AUTO) 5.1 (10.0-50.0); MEAN CORPUSCULAR HEMOGLOBIN 34.2 pg (27.0-31.0); MEAN CORPUSCULAR HGB CONC 31.6 (31.8-35.4); MEAN CORPUSCULAR VOLUME 107.9 fl (80.0-94.0); MONOCYTES # (AUTO) 0.1 K/uL (0.4-2.0); MONOCYTES % (AUTO) 1.4 (0-10); NEUTROPHILS # (AUTO) 9.3 K/ul (2.0-6.9); NEUTROPHILS % (AUTO) 92.6 % (42.2-75.2); PLATELET COUNT 281 10^3/uL (140-440); RDW COEFFICIENT OF VARIATION 13.2 % (11.6-14.8); RED BLOOD COUNT 3.66 10^6/ul (4.70-6.10); WHITE BLOOD COUNT 10.05 K/ul (4.2-10.2)
[2024-07-09 05:42] LABS: ALANINE AMINOTRANSFERASE 16.5 U/L (0-50); ALBUMIN 3.78 g/dL (3.5-5.0); ALKALINE PHOSPHATASE 76.8 U/L (56-119); ASPARTATE AMINO TRANSFERASE 29.9 U/L (17-59); BILIRUBIN,TOTAL 0.36 mg/dL (0.2-1.3); BLOOD UREA NITROGEN 43.7 mg/dL (9-20); CALCIUM 9.34 mg/dL (8.4-10.2); CARBON DIOXIDE 18.7 mmol/L (22-30.0); CHLORIDE 106.5 mmol/L (98-107); CREATININE 1.52 mg/dL (0.60-1.10); GLUCOSE 226.4 mg/dL (74-106); POTASSIUM 4.5 mmol/L (3.5-5.1); SODIUM 136.9 mmol/L (134.5-145); TOTAL PROTEIN 7.09 g/dL (6.3-8.2)
[2024-07-09] MEDS: HYDRALAZINE HCL IVP STA (06:32)
[2024-07-09] MEDS: FOLIC ACID PO SCH (08:25)
[2024-07-09] MEDS: THIAMINE PO SCH (08:31)
[2024-07-09] MEDS: MULTIVITAMIN TABLET PO SCH (08:31)
[2024-07-09] MEDS: PROTONIX PO SCH (10:31)
--- NOTE | 2024-07-09 11:16 | PCM ---
Date of Service Date Seen by Provider: 07/09/24 Admit Day/Time Admission Date: 07/08/24 Reason for Admission Chief Complaint: CAP, COPD, GEN WEAKNESS Hospital Provider Hospital Provider: MARTHA SHEPARD[place] [facility] [place] Primary Care Physician: JOANN UREÑA MD History of Present Illness History of Present Illness: 69 yo male with pmh of alcohol abuse, htn, ckd, and hyperlipidemia presented to the ER for weakness. Patient reports he has not felt well over the last few days and been unable to get out of bed. Had urinated and defecated on hisself multiple times and unable to get up. States he had multiple episodes of "black" diarrhea. Concerned that it was blood. Last colonoscopy was 4 years ago with 2 polyps at [facility]. No other abnormalities that he recalls. Denies any fever, chills, abdominal pain, vomiting, body aches, chest pain, or sob. ER provider noted pneumonia on chest xray but official radiology report does not show pneumonia. He was given 1 G of rocephin for empiric treatment. Currently awaiting a UA to r/o UTI. Patient drinks a pint to a fifth of vodka daily and has not drank in at least 3 days. Active tremors and anxiousness noted with some mild confusion. Admitted to med/surg observation. Case Discussed With Case Discussed With: Patient's case was discussed with the ER Physicians, Dr. Macdonald. [facility] Medical History Asthma SINCE CHILDHOOD J45.909 - Unspecified asthma, uncomplicated (ICD-10) Hypertension I10 - Essential (primary) hypertension (ICD-10) Chronic kidney disease N18.9 - Chronic kidney disease, unspecified (ICD-10) Cardiac arrhythmia I49.9 - Cardiac arrhythmia, unspecified (ICD-10) Dyslipidemia E78.5 - Hyperlipidemia, unspecified (ICD-10) Surgical History Status post hernia repair AGE 27 Z98.890 - Other specified postprocedural states (ICD-10) Family History Mother Asthma SINCE CHILDHOOD FATHER , RESP FAILURE at age 67. Type 1 diabetes mellitus Social History Alcohol intake: current Alcohol intake frequency: 3 or more drinks per day Previous attempts at quittin (Normally drinks a fifth of Vodka a day) Counseling given: Yes Caregiver/support person: Yes Household members: none Lives independently: Yes Number of children: 3 (Live in [place]) Financial difficulty paying for basics: somewhat hard group home: No Current occupational status: disabled Current occupational exposures/hazards: No History of recent travel: No Sexually active: No Do you think of yourself as: straight/heterosexual Current gender identity: male Allergies Allergies Allergy/AdvReac Type Severity Reaction Status Date / Time niacin Allergy Severe SHOCK WENT Verified 07/08/24 19:01 TO [facility] ER corn AdvReac Rash Verified 07/08/24 19:01 Egg Derived AdvReac Rash Verified 07/08/24 19:01 poison gogo extract (Poison AdvReac Rash Verified 07/08/24 19:01 Gogo Extract) poison oak extract (Poison AdvReac Rash Verified 07/08/24 19:01 [place] Extract) venom-wasp (Wasp Venom) AdvReac Hives Verified 07/08/24 19:01 egg AdvReac Rash Uncoded 07/08/24 19:01 Current Medications Home Medications lidocaine 5 % topical patch (Lidoderm) 1 patch topical DAILY #30 ea 10/14/23 [Rx Confirmed 12/18/23 Last Taken Unknown] atorvastatin 10 mg tablet 10 mg PO DAILY 12/18/23 [History Confirmed 12/18/23 Last Taken Unknown] azithromycin 250 mg tablet (Zithromax Z-Christian) See Rx Instructions PO .COMPLEX #6 tabs 12/18/23 [Rx Last Taken Unknown] gabapentin 100 mg capsule 100 mg PO DAILY 12/18/23 [History Confirmed 12/18/23 Last Taken Unknown] lisinopril 20 mg tablet 20 mg PO DAILY 12/18/23 [History Confirmed 12/18/23 Last Taken Unknown] methylprednisolone 4 mg tablets in a dose pack (Medrol (Christian)) See Rx Instructions PO .COMPLEX #21 ea 12/18/23 [Rx Last Taken Unknown] Home Acetaminophen (Acetaminophen 325 Mg Tablet) 650 mg PO Q4H PRN PRN Reason: Mild Pain Albuterol/Ipratropium (Ipratropium/Albuterol Vial.Neb) 3 ml NEB RTQ6H [facility] Last Admin: 07/09/24 11:12 Dose: 3 ml Folic Acid (Folic Acid 1 Mg Tablet) 1 mg PO DAILY [facility] Last Admin: 07/09/24 08:25 Dose: 1 mg Sodium Chloride (Sodium Chloride) 1,000 mls @ 100 mls/hr IV .Q10H [facility] Last Admin: 07/09/24 08:33 Dose: 100 mls/hr Lorazepam (Lorazepam 1 Mg Tablet) 2 mg PO Q1HR PRN PRN Reason: Withdrawal Last Admin: 07/09/24 05:57 Dose: 2 mg Lorazepam (Lorazepam 1 Mg Tablet) 1 mg PO Q2HR PRN PRN Reason: Withdrawal Multivitamins (Multivitamin 1 Tab) 1 tab PO DAILY [facility] Last Admin: 07/09/24 08:31 Dose: 1 tab Ondansetron HCl (Ondansetron Hcl/Pf 4 Mg/2 Ml Sdv) 4 mg IVP Q6H PRN PRN Reason: Nausea / Vomiting Pantoprazole Sodium (Pantoprazole Sodium 40 Mg Tablet.Dr) 40 mg PO BIDAC2 [facility] Last Admin: 07/09/24 10:31 Dose: 40 mg Thiamine HCl (Vitamin B-1 100 Mg Tablet) 100 mg PO DAILY [facility] Last Admin: 07/09/24 08:31 Dose: 100 mg Discontinued Medications Albuterol/Ipratropium (Ipratropium/Albuterol Vial.Neb) 3 ml NEB ONCE STA Stop: 07/08/24 19:15 Last Admin: 07/08/24 19:27 Dose: 3 ml Ceftriaxone Sodium (Ceftriaxone 1 Gm Vial) 1 gm IVP ONCE ONE Stop: 07/08/24 19:29 Last Admin: 07/08/24 20:03 Dose: 1 gm Dexamethasone Sodium Phosphate (Dexamethasone Sod Phos 10 Mg/Ml Inj) 8 mg IVP ONCE ONE Stop: 07/08/24 19:14 Last Admin: 07/08/24 19:20 Dose: 8 mg Hydralazine HCl (Hydralazine Hcl 20 Mg/Ml Sdv) 10 mg IVP ONCE STA Stop: 07/09/24 06:10 Last Admin: 07/09/24 06:32 Dose: 10 mg Sodium Chloride (Sodium Chloride) 1,000 mls @ 1,000 mls/hr IV BOLUS ONE Stop: 07/08/24 20:11 Last Infusion: 07/09/24 10:43 Dose: Infused Ibuprofen (Ibuprofen 400 Mg Tablet) 400 mg PO ONCE ONE Stop: 07/08/24 22:30 Last Admin: 07/08/24 23:13 Dose: 400 mg Opioid Naive vs. Tolerant Does Patient Take Opioids?: No Is Patient Opioid Naive?: Yes What is Opioid Naive?: *Opioid Naive implies the patient is not already taking opioids or not chronically receiving opioids on a daily basis. *PRN dosing is not "usually" associated with tolerance. *Patients are at higher risk of over-sedation and aspiration. Is Patient Opioid Tolerant?: No What is Opioid Tolerant?: *Opioid Tolerance implies less than the expected response to an opioid. *Acquired tolerance is defined by the patient taking 60mg of oral morphine daily (or equianalgesic dose of another opioid) for 1 week or more. *Often associated with chronic pain. *May take more than usual dose to achieve desired pain control. Review of Systems Constitutional: Reports Weakness Head: Reports Normocephalic Eyes: Reports No symptoms Ears: Reports No symptoms Nose: Reports No symptoms Mouth: Reports No symptoms Throat: Reports No symptoms Cardiovascular: Reports No symptoms Respiratory: Reports No symptoms Gastrointestinal: Reports Diarrhea and Black Tarry Stools Genitourinary: Reports No Symptoms Musculoskeletal: Reports No symptoms Endocrine: Reports No symptoms Hematology: Reports No symptoms Immunology: Reports No symptoms Neurological: Reports No symptoms Psychiatric: Reports No symptoms Physical examination Most Recent Vital Signs: Most Recent Vital Signs Temperature 98 F 07/09/24 10:00 Temperature Source Temporal Artery Scan 07/09/24 10:00 Temperature Source Oral 07/08/24 19:01 Pulse Rate 96 07/09/24 10:00 Respiratory Rate 16 07/09/24 10:00 Blood Pressure 128/73 07/09/24 10:00 Blood Pressure Mean 91 07/09/24 10:00 Blood Pressure Left Arm 154/98 07/08/24 21:26 Blood Pressure Location Left Arm 07/09/24 10:00 Blood Pressure Position Supine 07/09/24 10:00 O2 Sat by Pulse Oximetry 98 07/09/24 10:00 Oxygen Delivery Method Room Air 07/09/24 10:00 Height 5 ft 10 in 07/08/24 21:26 Weight 79.5 kg 07/08/24 21:26 Telemetry Type Remote Telemetry 07/09/24 07:00 Telemetry Monitoring Continues 07/09/24 07:00 Telemetry Heart Rate 96 07/09/24 07:00 EKG MD Interval 0.23 H 07/09/24 07:00 EKG QRS Interval 0.07 07/09/24 07:00 Telemetry Strip Reading SR w/ 1st degree AVB 07/09/24 07:00 Appearance: Positive No Apparent Distress and Ill-Appearing Skin: Positive Warm and Other (diaphoretic) HEENT: Positive Normocephalic and PERRLA Neck: Positive Supple and Midline Trachea Chest/Lungs: Positive Symmetrical With Equal Breath Sounds, Clear to Auscultation Bilaterally and Good Air Movement all 4 Lung Jerry Heart: Positive RRR and Pulses Normal GI/: Positive Soft, Nontender, Bowel Sounds Normal and No Distention Musculoskeletal: Positive Not Examined Extremities: Positive Intact Peripheral Pulses, Stable Joints Without Laxity and Good ROM in All Joints Neurological: Positive Sensation Intact, Motor intact, Alert and Oriented Psychiatric: Positive Oriented x4 Labs This Visit Labs This Visit: Labs This Visit 07/08/24 07/08/24 07/08/24 19:12 19:22 21:10 WBC 11.70 H RBC 3.98 L Hgb 13.8 L Hct 41.6 L MCV 104.5 H MCH 34.7 H MCHC 33.2 RDW Coeff of Raphael 13.2 Plt Count 310 Immature Gran % (Auto) 0.6 Neut % (Auto) 85.7 H Lymph % (Auto) 7.2 L Bracken % (Auto) 5.2 Eos % (Auto) 0.7 Baso % (Auto) 0.6 Neut # (Auto) 10.0 H Lymph # (Auto) 0.8 Bracken # (Auto) 0.6 Eos # (Auto) 0.1 Baso # (Auto) 0.1 Immature Gran # (Auto) 0.1 Sodium 134.5 Potassium 4.07 Chloride 103.9 Carbon Dioxide 18.6 L Anion Gap 16.07 BUN 43.4 H Creatinine 1.59 H Estimated GFR (MDRD) 44.00 BUN/Creatinine Ratio 27.29 Glucose 204.4 H Lactic Acid 1.46 Calcium 10.06 Magnesium 1.69 Total Bilirubin 0.79 AST 27.1 ALT 18.9 Alkaline Phosphatase 82.8 Total Creatine Kinase 45.2 L Troponin I < 0.012 Total Protein 7.86 Albumin 4.33 Globulin 3.53 Albumin/Globulin Ratio 1.22 Procalcitonin 0.14 H Urine Opiates Screen Ur Oxycodone Screen Urine Methadone Screen Ur Barbiturates Screen U Tricyclic Antidepress Ur Phencyclidine Scrn Ur Amphetamine Screen U Methamphetamines Scrn U Benzodiazepines Scrn Urine Cocaine Screen U Cannabinoids Screen Plasma/Serum Alcohol Influ A Molecular Assay Negative by naat Influ B Molecular Assay Negative by naat SARS CoV-2 RNA Rapid MAYCOL Negative 07/08/24 07/08/24 07/09/24 21:29 23:18 05:04 WBC 10.05 RBC 3.66 L Hgb 12.5 L Hct 39.5 L MCV 107.9 H MCH 34.2 H MCHC 31.6 L RDW Coeff of Raphael 13.2 Plt Count 281 Immature Gran % (Auto) 0.6 Neut % (Auto) 92.6 H Lymph % (Auto) 5.1 L Bracken % (Auto) 1.4 Eos % (Auto) 0.1 Baso % (Auto) 0.2 Neut # (Auto) 9.3 H Lymph # (Auto) 0.5 L Bracken # (Auto) 0.1 L Eos # (Auto) 0.0 Baso # (Auto) 0.0 Immature Gran # (Auto) 0.1 Sodium 136.9 Potassium 4.50 Chloride 106.5 Carbon Dioxide 18.7 L Anion Gap 16.20 BUN 43.7 H Creatinine 1.52 H Estimated GFR (MDRD) 46.00 BUN/Creatinine Ratio 28.75 Glucose 226.4 H Lactic Acid Calcium 9.34 Magnesium Total Bilirubin 0.36 AST 29.9 ALT 16.5 Alkaline Phosphatase 76.8 Total Creatine Kinase Troponin I Total Protein 7.09 Albumin 3.78 Globulin 3.31 Albumin/Globulin Ratio 1.14 Procalcitonin Urine Opiates Screen Negative Ur Oxycodone Screen Negative Urine Methadone Screen Negative Ur Barbiturates Screen Negative U Tricyclic Antidepress Negative Ur Phencyclidine Scrn Negative Ur Amphetamine Screen Negative U Methamphetamines Scrn Negative U Benzodiazepines Scrn Negative Urine Cocaine Screen Negative U Cannabinoids Screen Negative Plasma/Serum Alcohol < 10.0 Influ A Molecular Assay Influ B Molecular Assay SARS CoV-2 RNA Rapid MAYCOL Microbiology This Visit 07/08/24 19:22 Throat Group A Strep Molecular Assay - Final Imaging Imaging: EXAM: CHEST RADIOGRAPH FINDINGS: Mild linear scarring or atelectasis at the left lung base laterally. Lungs are otherwise clear. The heart size is normal. There is calcification in the aorta consistent with atherosclerosis. There is no pleural effusion. There is no pneumothorax. IMPRESSION: 1. Mild linear scarring or atelectasis at the left lung base laterally. 2. Atherosclerosis. 3. Otherwise unremarkable chest radiograph. Review Statement Review Statement: I have independently reviewed and interpreted the labs/EKGs/imaging that were ordered by the ER provider. I have reviewed all outside records that are available currently in our EMR including imaging/notes/labs from previous v isits. Plan Plan: 1. Alcohol Withdrawal - 3 days since last drink, CIWA protocol, telemetry, MVI, folic acid and thiamine ordered 2. Dehydration - mild, NS@100mL/hr, avoid nephrotoxins/hypotension 3. Black stools - occult stool ordered, protonix bid, refer to GI upon discharge 4. Leukocytosis - mild, chest x-ray clear, awaiting UA results 5. Medical noncompliance - refuses to go to follow-up appointments, has been out of medications for quite some time DVT Prophylaxis: Ambulation Time Spent: Greater than 80 minutes spent with patient, 50% of the time spent with this patient was devoted to counseling and coordination of care. Advanced Care Plannin minutes spent discussing advance care planning. Smoking Cessation: 3-10 minutes spent discussing smoking cessation. Disposition: Admit to: Med/surg Observation DNI, CPR only Discussed Plan of Care with Dr. Morris. Medications Medication Orders: Medications Ordered Category Date Time Status Acetaminophen [Tylenol] Meds 07/08/24 21:24 Active 650 mg PO Q4H PRN Folic Acid Meds 07/09/24 09:00 Active 1 mg PO DAILY Ipratropium/Albuterol Neb [Duoneb] Meds 07/09/24 00:00 Active 3 ml NEB RTQ6H Lorazepam [Ativan] Meds 07/08/24 22:25 Active 1 mg PO Q2HR PRN Lorazepam [Ativan] Meds 07/08/24 22:25 Active 2 mg PO Q1HR PRN Multivitamin [Multivitamin Tablet] Meds 07/09/24 09:00 Active 1 tab PO DAILY Ondansetron HCl/Pf [Zofran 4 mg/2 ml] Meds 07/08/24 22:25 Active 4 mg IVP Q6H PRN Pantoprazole Sodium [Protonix] Meds 07/09/24 09:55 Active 40 mg PO BIDAC2 Sodium Chloride 0.9% [Sodium Chloride] 1,000 ml Meds 07/08/24 21:30 Active IV 100 mls/hr Vitamin B-1 [Thiamine] Meds 07/09/24 09:00 Active 100 mg PO DAILY
[2024-07-09] MEDS: ATIVAN PO PRN (12:18)
[2024-07-09 21:36] LABS: BILIRUBIN,URINE Negative (NEGATIVE); CLARITY,URINE Clear (CLEAR); COLOR,URINE Yellow (YELLOW); GLUCOSE, URINE (UA) 2+ (NEGATIVE); KETONES,URINE Negative (NEGATIVE); LEUKOCYTE ESTERASE ,URINE Negative (NEGATIVE); NITRITE,URINE Negative (NEGATIVE); PH,URINE 5.5 (5-9); PROTEIN,URINE Negative (NEGATIVE); URINE, BLOOD Trace-intact (NEGATIVE); UROBILINOGEN,URINE 0.2 (0.2)
[2024-07-09 21:43] LABS: URINE RBC, MICROSCOPIC 0-2 (0-2)
[2024-07-10 05:28] LABS: BASOPHILS % (AUTO) 0.2 % (0.0-3.0); EOSINOPHILS % (AUTO) 0.2 % (0.0-7.0); HEMATOCRIT 35.4 % (42.0-52.0); HEMOGLOBIN 11.4 g/dl (14.0-18.0); IMMATURE GRANULOCYTE # (AUTO) 0.1 (0.0-1.0); IMMATURE GRANULOCYTE % (AUTO) 0.6 % (0.0-5.0); LYMPHOCYTES # (AUTO) 0.9 K/uL (0.60-3.4); LYMPHOCYTES % (AUTO) 8.4 (10.0-50.0); MEAN CORPUSCULAR HEMOGLOBIN 34.4 pg (27.0-31.0); MEAN CORPUSCULAR HGB CONC 32.2 (31.8-35.4); MEAN CORPUSCULAR VOLUME 106.9 fl (80.0-94.0); MONOCYTES # (AUTO) 0.4 K/uL (0.4-2.0); NEUTROPHILS # (AUTO) 9.7 K/ul (2.0-6.9); NEUTROPHILS % (AUTO) 86.6 % (42.2-75.2); PLATELET COUNT 274 10^3/uL (140-440); RDW COEFFICIENT OF VARIATION 13.2 % (11.6-14.8); RED BLOOD COUNT 3.31 10^6/ul (4.70-6.10); WHITE BLOOD COUNT 11.13 K/ul (4.2-10.2)
[2024-07-10 05:41] LABS: ALANINE AMINOTRANSFERASE 14.2 U/L (0-50); ALBUMIN 2.91 g/dL (3.5-5.0); ALKALINE PHOSPHATASE 58.9 U/L (56-119); ASPARTATE AMINO TRANSFERASE 20.3 U/L (17-59); BILIRUBIN,TOTAL 0.11 mg/dL (0.2-1.3); BLOOD UREA NITROGEN 40.2 mg/dL (9-20); CALCIUM 8.55 mg/dL (8.4-10.2); CARBON DIOXIDE 17.6 mmol/L (22-30.0); CHLORIDE 110.8 mmol/L (98-107); CREATININE 1.3 mg/dL (0.60-1.10); GLUCOSE 176.7 mg/dL (74-106); POTASSIUM 4.22 mmol/L (3.5-5.1); SODIUM 136.6 mmol/L (134.5-145); TOTAL PROTEIN 5.8 g/dL (6.3-8.2)
--- NOTE | 2024-07-10 09:11 | PCM.PROG ---
Date/Time Seen Date Seen by Provider: 07/10/24 Time Seen by Provider: 08:30 Provider Provider: MARTHA SHEPARD, [facility] Chief Complaint Chief Complaint: CAP, COPD, GEN WEAKNESS Subjective Subjective: Feeling some better today. Withdrawal symptoms improving. Wheezing and short of breath after sitting up for exam. Concerned about returning home. Objective Appearance: Positive No Apparent Distress, Alert and Oriented x3 and Ill- Appearing Chest/Lungs: Positive Symmetrical With Equal Breath Sounds, Wheezes (R upper lobe) and Good Air Movement all 4 Lung Jerry Heart: Positive RRR and Pulses Normal GI/: Positive Soft, Nontender, Bowel Sounds Normal and No Distention Musculoskeletal: Positive Not Examined Neurological: Positive Sensation Intact, Motor intact, Alert and Oriented Vital Signs Vital Signs: Vital Signs: Last 24 Hours 07/09/24 10:00 07/09/24 10:00 07/09/24 11:00 Temperature 98 F Temperature Source Temporal Artery Scan Pulse Rate 96 Pulse Rate [Apical] Respiratory Rate 16 Blood Pressure 128/73 Blood Pressure Mean 91 Blood Pressure Location Left Arm Blood Pressure Position Supine O2 Sat by Pulse Oximetry 98 Oxygen Delivery Method Room Air Room Air Room Air Telemetry Type Telemetry Monitoring Telemetry Heart Rate EKG ID Interval EKG QRS Interval Telemetry Strip Reading 07/09/24 12:00 07/09/24 12:12 07/09/24 13:00 Temperature Temperature Source Pulse Rate 122 H Pulse Rate [Apical] Respiratory Rate Blood Pressure Blood Pressure Mean Blood Pressure Location Blood Pressure Position O2 Sat by Pulse Oximetry Oxygen Delivery Method Room Air Room Air Telemetry Type Telemetry Monitoring Telemetry Heart Rate EKG ID Interval EKG QRS Interval Telemetry Strip Reading 07/09/24 13:00 07/09/24 14:00 07/09/24 14:00 Temperature 97.9 F Temperature Source Tympanic Pulse Rate 110 H Pulse Rate [Apical] Respiratory Rate 19 Blood Pressure 99/55 L Blood Pressure Mean 69 Blood Pressure Location Left Arm Blood Pressure Position Supine O2 Sat by Pulse Oximetry 95 Oxygen Delivery Method Room Air Room Air Telemetry Type Remote Telemetry Telemetry Monitoring Continues Telemetry Heart Rate 112 H EKG ID Interval 0.17 EKG QRS Interval 0.[address] 07/09/24 14:52 07/09/24 15:23 07/09/24 16:00 Temperature Temperature Source Pulse Rate 118 H Pulse Rate [Apical] Respiratory Rate Blood Pressure Blood Pressure Mean Blood Pressure Location Blood Pressure Position O2 Sat by Pulse Oximetry Oxygen Delivery Method Room Air Room Air Telemetry Type Telemetry Monitoring Telemetry Heart Rate EKG ID Interval EKG QRS Interval Telemetry Strip Reading 07/09/24 17:00 07/09/24 17:42 07/09/24 18:00 Temperature 97.8 F Temperature Source Tympanic Pulse Rate 99 Pulse Rate [Apical] Respiratory Rate 17 Blood Pressure 132/80 Blood Pressure Mean 97 Blood Pressure Location Left Arm Blood Pressure Position Supine O2 Sat by Pulse Oximetry 97 Oxygen Delivery Method Room Air Room Air Room Air Telemetry Type Telemetry Monitoring Telemetry Heart Rate EKG ID Interval EKG QRS Interval Telemetry Strip Reading 07/09/24 19:00 07/09/24 19:00 07/09/24 19:37 Temperature Temperature Source Pulse Rate 108 H Pulse Rate [Apical] Respiratory Rate 20 Blood Pressure Blood Pressure Mean Blood Pressure Location Blood Pressure Position O2 Sat by Pulse Oximetry Oxygen Delivery Method Room Air Telemetry Type Remote Telemetry Telemetry Monitoring Continues Telemetry Heart Rate 103 H EKG ID Interval 0.22 H EKG QRS Interval 0.[address] WITH 1ST DEGREE AVB 07/09/24 19:40 07/09/24 20:00 07/09/24 21:00 Temperature Temperature Source Pulse Rate Pulse Rate [Apical] 108 H Respiratory Rate Blood Pressure Blood Pressure Mean Blood Pressure Location Blood Pressure Position O2 Sat by Pulse Oximetry Oxygen Delivery Method Room Air Room Air Telemetry Type Telemetry Monitoring Telemetry Heart Rate EKG ID Interval EKG QRS Interval Telemetry Strip Reading 07/09/24 21:25 07/09/24 22:00 07/09/24 22:53 Temperature 98.3 F Temperature Source Oral Pulse Rate 100 Pulse Rate [Apical] Respiratory Rate 16 Blood Pressure 120/66 Blood Pressure Mean 84 Blood Pressure Location Left Arm Blood Pressure Position Supine O2 Sat by Pulse Oximetry 99 Oxygen Delivery Method Room Air Room Air Room Air Telemetry Type Telemetry Monitoring Telemetry Heart Rate EKG ID Interval EKG QRS Interval Telemetry Strip Reading 07/10/24 00:00 07/10/24 00:31 07/10/24 01:00 Temperature Temperature Source Pulse Rate 103 H Pulse Rate [Apical] Respiratory Rate 18 Blood Pressure Blood Pressure Mean Blood Pressure Location Blood Pressure Position O2 Sat by Pulse Oximetry Oxygen Delivery Method Room Air Room Air Telemetry Type Telemetry Monitoring Telemetry Heart Rate EKG ID Interval EKG QRS Interval Telemetry Strip Reading 07/10/24 01:00 07/10/24 02:00 07/10/24 02:00 Temperature Temperature Source Pulse Rate 90 Pulse Rate [Apical] Respiratory Rate 16 Blood Pressure Blood Pressure Mean Blood Pressure Location Blood Pressure Position O2 Sat by Pulse Oximetry Oxygen Delivery Method Room Air Room Air Telemetry Type Remote Telemetry Telemetry Monitoring Continues Telemetry Heart Rate 94 EKG ID Interval 0.25 H EKG QRS Interval 0.06 Telemetry Strip Reading SR WITH 1ST DEGREE AVB 07/10/24 03:00 07/10/24 04:00 07/10/24 05:00 Temperature Temperature Source Pulse Rate Pulse Rate [Apical] Respiratory Rate Blood Pressure Blood Pressure Mean Blood Pressure Location Blood Pressure Position O2 Sat by Pulse Oximetry Oxygen Delivery Method Room Air Room Air Room Air Telemetry Type Telemetry Monitoring Telemetry Heart Rate EKG ID Interval EKG QRS Interval Telemetry Strip Reading 07/10/24 05:20 07/10/24 05:50 07/10/24 07:00 Temperature 97.9 F Temperature Source Oral Pulse Rate 96 Pulse Rate [Apical] Respiratory Rate 18 Blood Pressure 144/73 H Blood Pressure Mean 96 Blood Pressure Location Left Arm Blood Pressure Position Supine O2 Sat by Pulse Oximetry 99 Oxygen Delivery Method Room Air Room Air Telemetry Type Remote Telemetry Telemetry Monitoring Continues Telemetry Heart Rate 89 EKG ID Interval 0.18 EKG QRS Interval 0.07 Telemetry Strip Reading SR 07/10/24 07:00 07/10/24 08:00 07/10/24 08:26 Temperature Temperature Source Pulse Rate 99 Pulse Rate [Apical] Respiratory Rate Blood Pressure Blood Pressure Mean Blood Pressure Location Blood Pressure Position O2 Sat by Pulse Oximetry Oxygen Delivery Method Room Air Room Air Telemetry Type Telemetry Monitoring Telemetry Heart Rate EKG ID Interval EKG QRS Interval Telemetry Strip Reading Lab Results Lab Results: Lab Results: Last 24 Hours 07/10/24 07/09/24 05:09 21:25 WBC 11.13 H RBC 3.31 L Hgb 11.4 L Hct 35.4 L MCV 106.9 H MCH 34.4 H MCHC 32.2 RDW Coeff of Raphael 13.2 Plt Count 274 Immature Gran % (Auto) 0.6 Neut % (Auto) 86.6 H Lymph % (Auto) 8.4 L [place] % (Auto) 4.0 Eos % (Auto) 0.2 Baso % (Auto) 0.2 Neut # (Auto) 9.7 H Lymph # (Auto) 0.9 [place] # (Auto) 0.4 Eos # (Auto) 0.0 Baso # (Auto) 0.0 Immature Gran # (Auto) 0.1 Sodium 136.6 Potassium 4.22 Chloride 110.8 H Carbon Dioxide 17.6 L Anion Gap 12.42 BUN 40.2 H Creatinine 1.30 H Estimated GFR (MDRD) 55.00 BUN/Creatinine Ratio 30.92 Glucose 176.7 H Calcium 8.55 Total Bilirubin 0.11 L AST 20.3 ALT 14.2 Alkaline Phosphatase 58.9 Total Protein 5.80 L Albumin 2.91 L Globulin 2.89 Albumin/Globulin Ratio 1.00 Urine Color Yellow Urine Clarity Clear Urine pH 5.5 Ur Specific [place] 1.015 Urine Protein Negative Urine Glucose (UA) 2+ H Urine Ketones Negative Urine Blood Trace-intact H Urine Nitrite Negative Urine Bilirubin Negative Urine Urobilinogen 0.2 Ur Leukocyte Esterase Negative Urine Microscopic RBC 0-2 Ur Squamous Epith Cells 2-5 Additional Comments Additional Comments: I have independently reviewed and interpreted the labs/EKGs/imaging ordered during this hospital stay. I have reviewed outside records that are available in our EMR that pertain to medical stay including imaging/notes/labs from previous visits. Active Medications Active Medications: Medications Generic Name Dose Route Start Last Admin Trade Name Freq PRN Reason Stop Dose Admin Acetaminophen 650 mg 07/08/24 21:24 Acetaminophen 325 Mg Tablet PO Q4H PRN Mild Pain Albuterol/Ipratropium 3 ml 07/09/24 00:00 07/10/24 05:06 Ipratropium/Albuterol Vial.Neb NEB 3 ml RTQ6H EZRA Administration Azithromycin 500 mg 07/10/24 09:10 Azithromycin 250 Mg Tablet PO 07/13/24 09:09 DAILY EZRA Folic Acid 1 mg 07/09/24 09:00 07/10/24 08:32 Folic Acid 1 Mg Tablet PO 1 mg DAILY EZRA Administration CEFTRIAXONE/D5W 1 GM PREMIX 1 gm in 50 mls @ 100 mls/hr 07/10/24 09:30 Rocephin 1 Gm/50 Ml D5w IV 07/13/24 09:29 DAILY EZRA Lorazepam 2 mg 07/08/24 22:25 07/10/24 08:32 Lorazepam 1 Mg Tablet PO 2 mg Q1HR PRN Administration Withdrawal Lorazepam 1 mg 07/08/24 22:25 07/09/24 12:18 Lorazepam 1 Mg Tablet PO 1 mg Q2HR PRN Administration Withdrawal Methylprednisolone Sodium Succinate 40 mg 07/10/24 09:10 Methylprednisolone Sod Succ/Pf 40 Mg/Ml Vial IVP Q8HR EZRA Multivitamins 1 tab 07/09/24 09:00 07/10/24 08:32 Multivitamin 1 Tab PO 1 tab DAILY EZRA Administration Ondansetron HCl 4 mg 07/08/24 22:25 Ondansetron Hcl/Pf 4 Mg/2 Ml Sdv IVP Q6H PRN Nausea / Vomiting Pantoprazole Sodium 40 mg 07/09/24 09:55 07/10/24 05:29 Pantoprazole Sodium 40 Mg Tablet. PO 40 mg BIDAC2 EZRA Administration Thiamine HCl 100 mg 07/09/24 09:00 07/10/24 08:32 Vitamin B-1 100 Mg Tablet PO 100 mg DAILY EZRA Administration Plan Plan: 1. COPD exacerbation - wheezing noted on exam with sob, steroids, nebs, rocephin and azith 2. Alcohol Withdrawal - 3 days since last drink, CIWA protocol, telemetry, MVI, folic acid and thiamine ordered 3. Dehydration - Improving, stop fluids today, avoid nephrotoxins/hypotension 4. Black stools - occult stool ordered, protonix bid, refer to GI upon discharge 5. Leukocytosis - mild, chest x-ray clear, UA negative 6. Medical noncompliance - refuses to go to follow-up appointments, has been out of medications for quite some time 7. L hand pain/swelling - xrays ordered 8. Weakness - unable to get out of bed, PT/OT to eval and treat DVT Prophylaxis: SCDs, unable to ambulate Dispo: Patient lives at home alone with no family. Has home makers that come in 2 hours a day but is alone the rest of the time. Has not been able to get out of bed for days. Presented to the ER covered in urine and feces. Admitting inpatient due unsafe discharge at this time. Discussed SNF placement - patient considering. Review Statement Review Statement: I have personally discussed and reviewed the patient's visit/currently labs/imaging/decision making with Dr. Morris, my supervising attending. Greater that 50 minutes spent with patient, 50% of the time spent with this patient was devoted to counseling and coordination of care.
[2024-07-10] MEDS: ROCEPHIN 1 GM/50 ML D5W 1 GM/50 ML BAG IV SCH (09:25)
[2024-07-10] MEDS: ZITHROMAX PO SCH (09:26)
[2024-07-10] MEDS: SOLU-MEDROL 40 MG IVP SCH (09:26)
[2024-07-10] MEDS: TYLENOL PO PRN (09:40)
[2024-07-10] MEDS: DUONEB NEB SCH (09:46)
[2024-07-10] MEDS ORDERED: ZOSYN 3.375 GM 3.375 GM in SODIUM CHLORIDE 100ML 100 ML IV SCH (10:00)
--- NOTE | 2024-07-10 11:03 | DI ---
EXAM: CHEST ONE VIEW, FRONTAL VIEW ONLY. HISTORY: Aspiration. COMPARISON: 07/08/2024. FINDINGS: Heart size is at the normal. The lungs are grossly clear although the lung bases are poor ly evaluated due to portable technique and patient positioning. No pleural effusion or pneumothorax identified. No vascular congestion detected. The osseous structures are intact. IMPRESSION: No acute process, noting limited evaluation of the lung bases. Follow-up as warranted.
--- NOTE | 2024-07-10 11:08 | DI ---
EXAM: RADIOGRAPHS, LEFT HAND HISTORY: Left hand pain and swelling. COMPARISON: None. TECHNIQUE: Three views. FINDINGS: Bone mineralization is normal. No fracture or dislocation identified. There is joint spa ce narrowing and marginal osteophyte formation at the metacarpal phalangeal joints, greatest at the t hird with associated subchondral cystic change and possible chondrocalcinosis. Mild spurring at othe r joints of the hand and wrist. No becky erosions. Soft tissues are unremarkable. IMPRESSION: Osteoarthritis, greatest at the third MCP joint.
[2024-07-10] MEDS: ZOSYN 4.5 GM 4.5 GM in SODIUM CHLORIDE 100ML 100 ML IV SCH (12:58)
--- NOTE | 2024-07-10 14:45 | RS.BEDDYS ---
Subjective Date of Evaluation: 07/10/24 Diagnosis: pneumonia Current Level of Function: Patient currently lives at home alone. Current Diet: regular Current Subjective/complaints:: Patient stated that he does have difficulty when he is eating on occasion. Medical History Comments:: see medical chart General Information General Patient Orientation: Person, Place, Time and Situation Ability to Follow Directions: Excellent Oral Expression Ability: No Impairment Oral-Facial Assessment Face Facial Symmetry: Symmetrical Dental/Labial Teeth Characteristics: Intact/Normal Lingual Protrusion: Normal Retraction: Normal Food Presentation Solids Food Presented: Regular Behaviors/Comments: Pt was unable to cut or food prep. He preferred his food bite-sized and took adequate size bites when food was prepped. He was prompted to take small bites. He reported that he does have difficulty with regular consistency at times. Food Presented: Mechanical Soft Behaviors/Comments: Pt did not observe to have difficulty with a soft, bite sized consistency. Liquids Liquid Presented: Thin Behaviors/Comments: no difficulties observed Recommendations: Dysphagia Evaluation Dietary Recommendations: Soft and Bite-Sized and Thin Comments:: food tray prepped as needed Dysphagia Swallow Precautions/Strategies: Sitting Upright (90 deg) and Small Bites and Sips Summary Dysphagia Evaluation Summary: Pt was evaluated to determine the safest diet consistency. He was observed to have difficulty by nursing which prompted the eval. He stated that he does have difficulty at times. He could not report exactly when he has difficulty with certain consistencies. Rehab Potential: Good Short Term Goals Goal #1: Tolerate mechanical soft diet with no s/s of aspiration. Goal #2: Complete laryngeal strengthening exercises. Usp Goals Goal #1: Tolerate least restrictive diet to safely consume PO diet. Plan Duration of Treatment: 1 Week Frequency of Treatment: 1-2 X day, as tolerated Treatment Code (1) Dysphagia: Code(s): R13.10 - Dysphagia, unspecified Qualifiers: Dysphagia type: oropharyngeal phase Qualified Code(s): R13.12 - Dysphagia, oropharyngeal phase
--- NOTE | 2024-07-10 16:02 | RS.PTINEVL ---
Subjective <FABIENNE WEINSTEIN PT - Last Filed: 07/10/24 16:03> Patient information Date of Evaluation: 07/10/24 Date of Arrival on Unit: 07/08/24 Admitted From:: Home Diagnosis: pneumonia, COPD Usual Living Arrangement: Alone Living Arrangement Comments: pt has worker 2 hours per day Home Environment: Apartment and Level/No stairs Medical History: Hypertension, COPD and Arthritis LATEX ALLERGY?: No Surgical History Comments:: hernia repair Medications: see chart Subjective Information/ Patient Comments:: pt states that he just had Ativan, but did agree to try to get out of bed. pt states he hasn't walked in days. Level of function Prior to this admission, the patient could do the following:: Independent Selfcare, Independent ADL's and Independent Ambulation Abilities prior to this admission: prior to illness pt amb independently with rwx Current Level of Function: Partially Dependent Current Equipment Used at Home: rwx Pain Assessement <FABIENNE WEINSTEIN PT - Last Filed: 07/10/24 16:03> Location B hands : Pain Behavior: Guarding and Facial Grimacing Effects of Pain: pt c/o pain in B hands on dorsum of hands, c/o pain to palpation Interventions <FABIENNE WEINSTEIN PT - Last Filed: 07/10/24 16:03> Objective Patient Orientation: Person, Place and Time Current Interventions: Telemetry Range of Motion <FABIENNE WEINSTEIN PT - Last Filed: 07/10/24 16:03> ROM Right Upper Extremity AROM: WFL's Left Upper Extremity AROM: WFL's Right Lower Extremity AROM: WFL's Left Lower Extremity AROM: WFL's Muscle Strength <FABIENNE WEINSTEIN PT - Last Filed: 07/10/24 16:03> Muscle Strength Right Upper Extremity: Mild Weakness (grossly 4/5 ) Left Upper Extremity: Mild Weakness (grossly 4/5) Right Lower Extremity: Mild Weakness (hip flex 4/5, knee flex/ext 4/5, ankle DF/PF 4/5) Left Lower Extremity: Mild Weakness (hip flex 4/5, knee flex/ext 4/5, ankle DF/PF 4/5) Sensation <FABIENNE WEINSTEIN PT - Last Filed: 07/10/24 16:03> Sensation Right Upper Extremity: Intact/Normal Left Upper Extremity: Intact/Normal Right Lower Extremity: Intact/Normal Left Lower Extremity: Intact/Normal Palpation <FABIENNE WEINSTEIN PT - Last Filed: 07/10/24 16:03> Palpation Findings: Tenderness (B hands ) Balance <FABIENNE WEINSTEIN PT - Last Filed: 07/10/24 16:03> Sitting Balance and Reactions Static Sitting Balance: Fair Dynamic Sitting Balance: Fair Standing Balance and Reactions Static Standing Balance: Poor Dynamic Standing Balance: Poor Standing Equilibrium Reactions: Delayed Left and Delayed Right Standing Protective Reactions: Delayed Left and Delayed Right Functional Mobility <FABIENNE WEINSTEIN PT - Last Filed: 07/10/24 16:03> Bed Mobility Rolling R/L: CGA Supine to Sit: Min Assist Transfers Sit to Stand: CGA Stand to Sit: [facility] Safety Awareness Safety Awareness: Fair ZACHARY INDEX SCORE: n/a Ambulation <FABIENNE WEINSTEIN PT - Last Filed: 07/10/24 16:03> Ambulation Assistive Device Used: Rolling Walker Orthotic/Prosthetic Device: No Distance: 10ft Assistance needed with Ambulation: CGA Gait Deviations: Narrow Based gait, Forward posture, Short stride and Deviates from path Ambulation Comments: pt with guarded posture Factors Affecting Ambulation: Decreased Balance, Weakness, Decreased Coordination, Decreased Safety and Limited Endurance Treatment time <FABIENNE WEINSTEIN PT - Last Filed: 07/10/24 16:03> Units charged ADL: 1 (TA) Time with patient Length of Evaluation: 18 Total treatment time: 29 Patient Education <FABIENNE WEINSTEIN PT - Last Filed: 07/10/24 16:03> Education Patient Education: Activity Modification and Education of Plan of Care Teaching Recipient: Patient Teaching Methods: Discussion Assessment <FABIENNE WEINSTEIN PT - Last Filed: 07/10/24 16:03> Assessment Problem List:: Decreased level of function, Requires training/education, Decreased safety/Risk of falls and Weakness Rehab Potential: Fair Further Therapy Indicated?: Yes Candidate for Swing Bed for Therapy Services?: Would have to reassess at later date. Evaluation Complexity: HISTORY: Medium, EXAM OF BODY SYSTEMS: Medium, CLINICAL PRESENTATION: Medium and CLINICAL DECISION MAKING: Medium Patient's Goal(s): Get stronger Short Term Goals <FABIENNE WEINSTEIN PT - Last Filed: 07/10/24 16:03> GOAL #1: pt demonstrate rolling and scooting in bed independently. Goal to be met by: 07/13/24 GOAL #2: Transfer sup to/from sit CGA Goal to be met by: 07/13/24 GOAL #3: Transfer sit to/from stand CGA to SBA Goal to be met by: 07/13/24 GOAL #4: pt amb with rwx 50ft with CGA x 1 no LOB Goal to be met by: 07/13/24 GOAL #5: Improve BLE strength 4+/5 Goal to be met by: 07/13/24 [facility] Goals <FABIENNE WEINSTEIN PT - Last Filed: 07/10/24 16:03> GOAL #1: pt transfer sup to/from sit to/from stand independently. Goal to be met by: 07/15/24 GOAL #2: pt amb with rwx functional household distances with SBA Goal to be met by: 07/15/24 GOAL #3: Improve dyn stand balance fair Goal to be met by: 07/15/24 Plan <AFBIENNE WEINSTEIN PT - Last Filed: 07/10/24 16:03> Plan of Care: Therapeutic EX and Therapeutic Activity Other:: gait training Frequency of Treatment: 1-2 X day, as tolerated Duration of Treatment: 4-5 days Anticipated Discharge Destination: Home Treatment Diagnosis (ICD 10 Codes): impaired balance R26.81 gait difficulty R26.2 weakness M62.81 <MARTHA SHEPARD - Last Filed: 07/10/24 16:04> Has the Physician been added for Co-signature?: Yes
--- NOTE | 2024-07-10 16:17 | RS.OTINEVL ---
Subjective Patient information Date of Evaluation: 07/10/24 Date of Arrival on Unit: 07/08/24 Admitted From:: Home Diagnosis: Increased weakness, anemia, pneumonia PRECAUTIONS: fall risk Usual Living Arrangement: Alone Living Arrangement Comments: rents an apartment in public housing Home Environment: Apartment Medical History: Hypertension and COPD Medical History Comments:: see medical chart Medications: Refer to chart Subjective Information/ Patient Comments:: "Will you put it down there." "I can't do it." (Pt acts like he can't use a urinal). Level of function Prior to this admission, the patient could do the following:: Independent ADL's, Independent Ambulation and Partially Dependent Ambulation Abilities prior to this admission: Pt reports that his bilateral hands hurt. Pt's hands are red and shiney looking. Current Level of Function: Partially Dependent (Pt has difficulty with fine motor tasks and ADLs.) Current Equipment Used at Home: RW Pain Assessment Pain Pain Location Body Site: Hand Pain Aggravating Factors: ADL's Interventions Objective Patient Orientation: Person and Situation Observation: Pt has red bilateral hands. Pt reports his hands hurt. Pt would not try to use the urinal independently. Interventions ROM Right Upper Extremity AROM: WFL's Left Upper Extremity AROM: WFL's Strength Right Upper Extremity: Mild Weakness Left Upper Extremity: Mild Weakness Sensation Right Upper Extremity: Intact/Normal Left Upper Extremity: Intact/Normal ADL Skills Self Feeding Self Feeding: Independent Grooming Grooming: Independent Bathing Bathing UE: Set Up Only Bathing LE: Min Assist Bathing Set-up: Shower Dressing Dressing UE: Supervision Dressing LE: Min Assist Toilet Management Toilet Hygiene: Independent Toilet Clothing Management: Min Assist Functional Mobility Bed Mobility Rolling R/L: Min Assist Supine to Sit: Min Assist Transfers Sit to Stand: CGA Stand to Sit: CGA Ambulation Weight Bearing Status: FWB Assistive Device Used: Rolling Walker Assistance needed with Ambulation: CGA Safety Awareness Safety Awareness: Fair ZACHARY INDEX SCORE: . Additional Treatment Performed Time with patient Length of Evaluation: 17 Total treatment time: 19 Activities Do you enjoy playing games?: No Would you be interested in leaving your room for activities?: No Would you enjoy group activities?: No Do you have difficulty with your vision?: No Patient Interests:: Watching Television Patient Education Patient Education: Education of diagnosis, Home Exercise Program and Education of Plan of Care Teaching Recipient: Patient Teaching Methods: Discussion and Demonstration Assessment Problem List:: Decreased level of function, Decreased safety/Risk of falls and Weakness Rehab Potential: Fair Candidate for Swing Bed for Therapy Services?: Pt is inconsistent with fine motor tasks. Pt is Independent with eating a hamburger but is not able to use a urinal independently. Comments: Pt reports his hands hurt but he can empty his plate independently. Evaluation Complexity: HISTORY: Medium, EXAM OF BODY SYSTEMS: Medium and CLINICAL DECISION MAKING: Medium Patient's Goal(s): To be able to go to a snf facility. Short Term Goals Goals GOAL 1: Pt to be I with using a urinal? Goal to be met by: 07/14/24 GOAL 2: Pt to increase BUE strength to 4+/5. Goal to be met by: 07/14/24 GOAL 3: Pt to be Independent with grooming standing at the sink with RW. Goal to be met by: 07/14/24 GOAL 4: Pt to increase dyn. std. bal. to F+. Goal to be met by: 07/14/24 GOAL 5: Pt I with LB dressing sitting in chair. Goal to be met by: 07/14/24 [facility] Goals GOAL 1: Pt to be Independent with ADLs. Goal to be met by: 07/15/24 GOAL 2: Pt to increase BUE strength to 5/5. Goal to be met by: 07/15/24 GOAL 3: Pt to increase dyn. std. bal. to G-. Goal to be met by: 07/15/24 Plan Plan of Care: Therapeutic EX, Therapeutic Activity and Self-Care/Home Management Frequency of Treatment: 1-2 X day, as tolerated Duration of Treatment: 1 Week Anticipated Discharge Destination: [facility] Care Facility Treatment Diagnosis (ICD 10 Codes): weakness R53.1 Z74.1 need for assistance with personal care. Has the Physician been added for Co-signature?: Yes
[2024-07-10 17:09] LABS: OCCULT BLOOD SAMPLE 1 NEGATIVE (NEGATIVE); OCCULT BLOOD SAMPLE 2 NO SPECIMEN RECEIVED (NEGATIVE); OCCULT BLOOD SAMPLE 3 NO SPECIMEN RECEIVED (NEGATIVE)
[2024-07-10] MEDS: LIBRIUM PO SCH (20:43)
[2024-07-11 06:00] LABS: BASOPHILS % (AUTO) 0.1 % (0.0-3.0); HEMATOCRIT 36.9 % (42.0-52.0); HEMOGLOBIN 11.9 g/dl (14.0-18.0); IMMATURE GRANULOCYTE # (AUTO) 0.1 (0.0-1.0); IMMATURE GRANULOCYTE % (AUTO) 0.9 % (0.0-5.0); LYMPHOCYTES # (AUTO) 0.4 K/uL (0.60-3.4); LYMPHOCYTES % (AUTO) 4.1 (10.0-50.0); MEAN CORPUSCULAR HEMOGLOBIN 33.8 pg (27.0-31.0); MEAN CORPUSCULAR HGB CONC 32.2 (31.8-35.4); MEAN CORPUSCULAR VOLUME 104.8 fl (80.0-94.0); MONOCYTES # (AUTO) 0.3 K/uL (0.4-2.0); MONOCYTES % (AUTO) 2.6 (0-10); NEUTROPHILS # (AUTO) 9.5 K/ul (2.0-6.9); NEUTROPHILS % (AUTO) 92.3 % (42.2-75.2); PLATELET COUNT 287 10^3/uL (140-440); RDW COEFFICIENT OF VARIATION 13.2 % (11.6-14.8); RED BLOOD COUNT 3.52 10^6/ul (4.70-6.10); WHITE BLOOD COUNT 10.31 K/ul (4.2-10.2)
[2024-07-11 06:07] LABS: ALBUMIN 3.28 g/dL (3.5-5.0); ALKALINE PHOSPHATASE 58.8 U/L (56-119); ASPARTATE AMINO TRANSFERASE 21.1 U/L (17-59); BILIRUBIN,TOTAL 0.17 mg/dL (0.2-1.3); BLOOD UREA NITROGEN 37.6 mg/dL (9-20); CALCIUM 8.57 mg/dL (8.4-10.2); CARBON DIOXIDE 16.2 mmol/L (22-30.0); CHLORIDE 104.8 mmol/L (98-107); CREATININE 1.45 mg/dL (0.60-1.10); GLUCOSE 367.5 mg/dL (74-106); POTASSIUM 3.84 mmol/L (3.5-5.1); TOTAL PROTEIN 6.14 g/dL (6.3-8.2)
[2024-07-11 10:02] VITALS: BP 178/102; PULSE 102; RESP 24; TEMP 98
--- NOTE | 2024-07-11 10:46 | DCSUM ---
Admission Date Admission Date: 07/08/24 Discharge Date Discharge Date: 07/11/24 Admission Diagnosis Admission Diagnosis: 1. Alcohol Withdrawal - 3 days since last drink, CIWA protocol, telemetry, MVI, folic acid and thiamine ordered 2. Dehydration - mild, NS@100mL/hr, avoid nephrotoxins/hypotension 3. Black stools - occult stool ordered, protonix bid, refer to GI upon discharge 4. Leukocytosis - mild, chest x-ray clear, awaiting UA results 5. Medical noncompliance - refuses to go to follow-up appointments, has been out of medications for quite some time Discharge Diagnosis Discharge Diagnosis: 1. COPD exacerbation - wheezing noted on exam with sob, steroids, nebs, rocephin and azith 2. Alcohol Withdrawal - 3 days since last drink, CIWA protocol, telemetry, MVI, folic acid and thiamine ordered 3. Dehydration - Improving, stop fluids today, avoid nephrotoxins/hypotension 4. Black stools - occult stool ordered, protonix bid, refer to GI upon discharge 5. Leukocytosis - mild, chest x-ray clear, UA negative 6. Medical noncompliance - refuses to go to follow-up appointments, has been out of medications for quite some time 7. L hand pain/swelling - xrays ordered 8. Weakness - unable to get out of bed, PT/OT to eval and treat Hospital Provider Hospital Provider: [facility]HEPARD, [facility] Phys[facility] Primary Care Physician: JOANN UREÑA MD Summary of History and Physical Summary of History and Physical: 69 yo male with pmh of alcohol abuse, htn, ckd, and hyperlipidemia presented to the ER for weakness. Patient reports he has not felt well over the last few days and been unable to get out of bed. Had urinated and defecated on hisself multiple times and unable to get up. States he had multiple episodes of "black" diarrhea. Concerned that it was blood. Last colonoscopy was 4 years ago with 2 polyps at [facility]. No other abnormalities that he recalls. Denies any fever, chills, abdominal pain, vomiting, body aches, chest pain, or sob. ER provider noted pneumonia on chest xray but official radiology report does not show pneumonia. He was given 1 G of rocephin for empiric treatment. Currently awaiting a UA to r/o UTI. Patient drinks a pint to a fifth of vodka daily and has not drank in at least 3 days. Active tremors and anxiousness noted with some mild confusion. Admitted to med/surg observation. Hospital Course Subjective: Patient was admitted initially for pneumonia. X-ray negative. No coughing or wheezing on 1st day of admission. Patient had tremors, anxiousness, photosensitivity, and mild confusion. Noted alcohol withdrawal. Started on CIWA protocol with mvi, folic acid, thiamine and IV fluids. Renal function mildly elevated but improved with fluids. Patient reported black stools at home. Occult stool negative. Started on protonix BID and recommend seeing GI for up to date colonoscopy. Leukocytosis mild initially with no obvious signs of infection. Chest x-ray and UA negative. Has episode of aspiration during stay. X-ray completed afterward negative but adventitious breath sounds present. Treated with zosyn and d/c with augmentin for preventative. L hand pain was also present with mild swelling at 3rd knuckle region. Arthritis noted on x-ray. Patient has had profound weakness and unable to ambulate without assistance. Discussed extensively safety concerns and did not feel patient was safe to go home. He is alert and oriented x 3. Has home performance consultant services as well as meals delivered. Refusing any placement at this time. Patient was also retaining 200-300mL post-void and peeing frequently. Narayanan catheter was placed due to retention and patient refuses to go home with catheter and requested removal. Appearance: No Apparent Distress and Alert HEENT: MMM, Supple and No JVD CVS: No Murmur and No Rubs Abdomen: Soft, Non-Tender and No Distention Respiratory: No Dyspnea Extremities: No Edema Vital Signs: Most Recent Vital Signs Temperature 98 F 07/11/24 10:00 Temperature Source Temporal Artery Scan 07/11/24 10:00 Temperature Source Oral 07/08/24 19:01 Pulse Rate 102 H 07/11/24 10:00 Respiratory Rate 24 H 07/11/24 10:00 Blood Pressure 178/102 H 07/11/24 10:00 Blood Pressure Mean 127 07/11/24 10:00 Blood Pressure Left Arm 154/98 07/08/24 21:26 Blood Pressure Location Left Arm 07/11/24 10:00 Blood Pressure Position Sitting 07/11/24 10:00 O2 Sat by Pulse Oximetry 95 07/11/24 10:00 Oxygen Delivery Method Room Air 07/11/24 10:00 Height 5 ft 10 in 07/08/24 21:26 Weight 79.5 kg 07/08/24 21:26 Telemetry Type Remote Telemetry 07/11/24 07:00 Telemetry Monitoring Continues 07/11/24 07:00 Telemetry Heart Rate 108 H 07/11/24 07:00 EKG CA Interval 0.18 07/11/24 07:00 EKG QRS Interval 0.10 07/11/24 07:00 Telemetry Strip Reading Sinus Tach 07/11/24 07:00 Imaging: EXAM: CHEST RADIOGRAPH FINDINGS: Mild linear scarring or atelectasis at the left lung base laterally. Lungs are otherwise clear. The heart size is normal. There is calcification in the aorta consistent with atherosclerosis. There is no pleural effusion. There is no pneumothorax. IMPRESSION: 1. Mild linear scarring or atelectasis at the left lung base laterally. 2. Atherosclerosis. 3. Otherwise unremarkable chest radiograph. EXAM: CHEST ONE VIEW, FRONTAL VIEW ONLY. FINDINGS: Heart size is at the normal. The lungs are grossly clear although the lung bases are poorly evaluated due to portable technique and patient positioning. No pleural effusion or pneumothorax identified. No vascular congestion detected. The osseous structures are intact. IMPRESSION: No acute process, noting limited evaluation of the lung bases. Follow-up as warranted. Lab Results Last 24 Hours: 07/11/24 07/10/24 07/10/24 05:15 09:51 05:09 WBC 10.31 H RBC 3.52 L Hgb 11.9 L Hct 36.9 L MCV 104.8 H MCH 33.8 H MCHC 32.2 RDW Coeff of Raphael 13.2 Plt Count 287 Immature Gran % (Auto) 0.9 Neut % (Auto) 92.3 H Lymph % (Auto) 4.1 L [place] % (Auto) 2.6 Eos % (Auto) 0.0 Baso % (Auto) 0.1 Neut # (Auto) 9.5 H Lymph # (Auto) 0.4 L [place] # (Auto) 0.3 L Eos # (Auto) 0.0 Baso # (Auto) 0.0 Immature Gran # (Auto) 0.1 Sodium 134.0 L Potassium 3.84 Chloride 104.8 Carbon Dioxide 16.2 L Anion Gap 16.84 BUN 37.6 H Creatinine 1.45 H Estimated GFR (MDRD) 49.00 BUN/Creatinine Ratio 25.93 Glucose 367.5 H Calcium 8.57 Total Bilirubin 0.17 L AST 21.1 ALT 19.0 Alkaline Phosphatase 58.8 Total Protein 6.14 L Albumin 3.28 L Globulin 2.86 Albumin/Globulin Ratio 1.14 Procalcitonin 0.12 H Stl Occult Blood (IFOB) Negative Stool Occult Blood #2 No specimen received Stool Occult Blood #3 No specimen received Discharge Instructions Discharge Planning: Discharge Planning > 40 minutes If patient is discharged with left ventricular systolic dysfunction: NA Discharged with a beta tony? [] If no, why not? [] Discharged with an wayne/arb? [] If no, why not? [] Diagnosis: Alcohol withdrawal, COPD exacerbation/Aspiration Diet: Soft, regular Activity: as tolerated Follow-up with PCP next week Medications: MD1 Discharge Medications: Medications at Discharge (Home Meds & RX) lidocaine 5 % topical patch (Lidoderm) 1 patch topical DAILY #30 ea 10/14/23 atorvastatin 10 mg tablet 10 mg PO DAILY 12/18/23 azithromycin 250 mg tablet (Zithromax Z-Christian) See Rx Instructions PO .COMPLEX #6 tabs 12/18/23 gabapentin 100 mg capsule 100 mg PO DAILY 12/18/23 lisinopril 20 mg tablet 20 mg PO DAILY 12/18/23 methylprednisolone 4 mg tablets in a dose pack (Medrol (Christian)) See Rx Instr uctions PO .COMPLEX #21 ea 12/18/23 Discharge Plan Discharge Discharge Orders: Discharge Patient (ONCE); Ordered 07/11/24 Ordered By: MELVI HILL Activity Restrictions/Additional Instructions: Diagnosis: Alcohol withdrawal, COPD exacerbation/Aspiration Diet: Soft, regular Activity: as tolerated Follow-up with PCP next week Medications: MD1 Instructions: COPD (Chronic Obstructive Pulmonary Disease) (IP), Abuse of Alcohol (GEN) Patient Disposition: HOME HEALTH SERVICE Prescriptions: New pantoprazole 40 mg Tablet,Delayed Release (Dr/Ec) 40 mg PO BIDAC2 Qty: 60 0RF amoxicillin-pot clavulanate 875-125 mg tablet 1 tab PO BID Qty: 12 0RF Continued lisinopril 20 mg tablet 20 mg PO DAILY gabapentin 100 mg capsule 100 mg PO DAILY atorvastatin 10 mg tablet 10 mg PO DAILY methylprednisolone [Medrol (Christian)] 4 mg tablets,dose pack See Rx Instructions .ROUTE .COMPLEX Qty: 21 0RF Rx Instructions: orally per package directions lidocaine [Lidoderm] 5 % adhesive patch,medicated 1 patch topical DAILY Qty: 30 0RF Rx Instructions: leave on most painful area for up to 12 hrs Discontinued azithromycin [Zithromax Z-Christian] 250 mg tablet See Rx Instructions .ROUTE .COMPLEX Qty: 6 0RF Rx Instructions: For 250 mg dose pack: take 500 mg today (day 1), then 250 mg for 4 days (days 2-5) Did you review [place] [employer] for ALL controlled substances?: No Discussed opioids are addictive and Narcan is available by prescription or from pharmacy.: No Condition: Stable Referrals: MAURILIO BARNES [REFERRING] - 07/21/24 1:00 pm
[2024-07-11] MEDS: FLUZONE HIGH-DOSE TRIV 2024-25 IM ONE (12:16)
== END 2024-07-11 12:30 | disposition home health service (06) | DRG 191 ==
LOC: MEDSURG B 19:00 → ED 19:00 → MEDSURG B 21:05
PROVIDERS: ADMIT Hospitalist; ATTEND Nurse Practitioner Family